=== PATIENT | female | born 1995 | race Caucasian/White ===

== ENCOUNTER 2021-10-13 08:11 | Inpatient (IN) | payer BC, MEDICAID, SELFPAY ==
[2021-10-13] VITALS (168 sets, daily range): BP systolic 75–160; BP diastolic 33–103; PULSE 35–171; TEMP 36.8; O2SAT 92–100; BMI 40.7
--- OUTSIDE RECORDS SUMMARY | 2021-10-13 11:54 | XMS_ITS | Encounter Summary ---
:1995 Author Care Team Providers Name Role Phone Avery Hein MD Primary Care Provider [phone] Reason for Visit None recorded. Assessment and Plan 1. Maternal obesity complicating , childbirth and the puerperium, antepartum ? non-stress test Discussion Note: None recorded.Patient educational handouts: No information available. Plan of Care Reminders Provider Appointments U/S OB BPP Ultr asound, TECH 10/25/2021 10:00AM ? Ob Routine Maggie Smith 10/25/2021 MD Urbano 10:45AM ? Nst Nst, , EQUI P 10/25/2021 9:15AM ? U/S OB BPP Ultras ound, TECH 11/01/2021 10:00AM ? Ob Routine Maggie Smiht 11/01/2021 MD [place] 10:30AM ? Nst Nst, , EQUI P 11/01/2021 9:15AM Lab None ? ? recorded. Referral None ? ? recorded. Procedures None ? ? recorded. Surgeries None ? ? recorded. Imaging Non-stress [place] Test 10/11/2021
--- OUTSIDE RECORDS SUMMARY | 2021-10-13 11:54 | XMS_ITS | Encounter Summary ---
:1995 Author Care Team Providers Name Role Phone Avery Hein MD Primary Care Provider [phone] Reason for Visit OB visit Assessment and Plan Assessment Note Patient is ___weeks . Discu ssed plan. 1. Routine care Discussion Note: None recorded.Patient educational handouts: No information available. Plan of Care Reminders Provider Appointments U/S OB BPP Ultr asound, TECH 10/25/2021 10:00AM ? Ob Routine Maggie Smith 10/25/2021 MD [place]ano 10:45AM ? Nst Nst, , EQUI P 10/25/2021 9:15AM ? U/S OB BPP Ultras ound, TECH 11/01/2021 10:00AM ? Ob Routine Maggie Smith 11/01/2021 MD [place]ano 10:30AM ? Nst Nst, , EQUI P 11/01/2021 9:15AM Lab None ? ? recorded. Referral None ? ? recorded. Procedures None ? ? recorded. Surgeries None ? ? recorded. Imaging None ? ? recorded. Medications
--- OUTSIDE RECORDS SUMMARY | 2021-10-13 11:54 | XMS_ITS | Encounter Summary ---
:1995 Author Care Team Providers Name Role Phone Avery Hein MD Primary Care Provider [phone] Reason for Visit OB visit OBB [id number] EDC 10/27/2021 lmp 01/20/2021 Assessment and Plan Assessment Note Patient is _37__weeks . Dis cussed plan. 1. Routine care Discussion Note: None [...]
--- OUTSIDE RECORDS SUMMARY | 2021-10-13 11:54 | XMS_ITS | Encounter Summary ---
:1995 Author Care Team Providers Name Role Phone Avery Hein MD Primary Care Provider [phone] Reason for Visit None recorded. Assessment and Plan 1. Maternal obesity complicating , childbirth and the puerperium, antepartum ? US, obstetric, biophysical profile + non-stress test Discussion Note: None recorded.Patient educational [...] , EQUI P 11/01/2021 9:15AM Lab None recorded. ? ? Referral None recorded. ? ? Procedures None recorded. ? ?
--- OUTSIDE RECORDS SUMMARY | 2021-10-13 11:54 | XMS_ITS ---
:1995 Author Care Team Providers Name Role Phone GREGG FARLEY MD Primary Care Provider [phone] Allergies Code Code System Name Reaction Severity Status Onset Sulfa Hives ? Active ? (Sulfonamid e Antibiotics ) ? Itching ? Active ? Medications Name Status Start Date Stop Date ? ? acetaminophen 300 mg-codeine 30 mg tablet Completed ? 10/11/2021 TAKE 1 TABLET BY MOUTH FOUR TIMES DAILY NEEDED FOR PAIN amoxicillin 500 mg capsule Completed ? 08/23 TAKE 1 CAPSULE BY MOUTH EVERY 8 HOURS FOR 7 DAYS amoxicillin 875 mg-potassium clavulanate 125 mg tablet Completed ? 08/23/2021 TAKE 1 TABLET BY MOUTH TWICE DAILY FOR 10 DAYS clotrimazole-betamethasone 1 %-0.05 % topical cream Active ? Not available APPLY TOPICALLY TO THE AFFECTED AND STEVEN ROUNDING AREAS TWICE DAILY IN THE MORNING AND IN THE EVENING FOR 2 WEEKS fluoxetine 20 mg capsule Completed ? 021 TAKE 1 CAPSULE BY MOUTH EVERY DAY fluticasone propionate 50 mcg/actuation nasal spray,suspension C ompleted ? 10/02/2021 USE 1 SPRAY IN EACH NOSTRIL TWICE DAILY FOR 14 DAYS Lidocaine Viscous 2 % mucosal solution Completed ? 06/12/2021 meloxicam 15 mg tablet Completed ? 1 TAKE 1 TABLET BY MOUTH EVERY DAY WITH A MEAL naproxen 500 mg tablet Completed ? 1 NuvaRing 0.12 mg-0.015 mg/24 hr vaginal Completed ? 06/12/2021
--- OUTSIDE RECORDS SUMMARY | 2021-10-13 11:54 | XMS_ITS | Encounter Summary ---
:1995 Author Care Team Providers Name Role Phone Avery Hein MD Primary Care Provider [phone] Reason for Visit OB visit Assessment and Plan 1. Genital herpes simplex 2. Large for gestation age fetus 3. Mixed anxiety and depressive disorder 4. Viral hepatitis C 5. Obesity Discussion Note: None recorded.Patient educational handouts: No [...]
--- OUTSIDE RECORDS SUMMARY | 2021-10-13 11:54 | XMS_ITS | Encounter Summary ---
:1995 Author Care Team Providers Name Role Phone Avery Hein MD Primary Care Provider [phone] Reason for Visit None recorded. Assessment and [...] ? recorded. Imaging Non-stress [place]le Test 10/04/2021
--- OUTSIDE RECORDS SUMMARY | 2021-10-13 11:54 | XMS_ITS | Encounter Summary ---
:1995 Author Care Team Providers Name Role Phone Avery Hein MD Primary Care Provider [phone] Reason for Visit OB visit [id number] Assessment and Plan Assessment Note Patient is ___weeks . Discu ssed plan. 1. Dermal mycosis ? clotrimazole-betamethasone 1 %-0.05 % topical cream Discussion Note: None recorded.Patient educational handouts: No information available. Plan of Care Reminders Provider Appointments U/S OB BPP Ultr asound, TECH 10/25/2021 10:00AM ? Ob Routine Maggie Smith 10/25/2021 MD [place] 10:45AM ? Nst Rios, YISSEL P 10/25/2021 9:15AM ? U/S OB BPP Ultras ound, TECH 11/01/2021 10:00AM ? Ob Routine Maggie Smith 11/01/2021 MD [place] 10:30AM ? Nst Rios, YISSEL P 11/01/2021 9:15AM Lab None ? ? recorded. Referral None ? ? recorded. Procedures None ? ? recorded. Surgeries None ? ? recorded.
--- OUTSIDE RECORDS SUMMARY | 2021-10-13 11:54 | XMS_ITS | Encounter Summary ---
:1995 Author Care Team Providers Name Role Phone Avery Hein MD Primary Care Provider [phone] Reason for Visit OB visit Assessment and [...]
--- OUTSIDE RECORDS SUMMARY | 2021-10-13 11:54 | XMS_ITS | Encounter Summary ---
:1995 Author Care Team Providers Name Role Phone Avery Hein MD Primary Care Provider [phone] Reason for Visit None recorded. Assessment and Plan 1. Reduced movement ? non-stress test Discussion Note: None recorded.Patient [...] Surgeries None ? ? recorded. Imaging Non-stress [place] Test 09/24/2021 Medications
--- OUTSIDE RECORDS SUMMARY | 2021-10-13 11:54 | XMS_ITS | Encounter Summary ---
:1995 Author Care Team Providers Name Role Phone Avery Hein MD Primary Care Provider [phone] Reason for Visit None recorded. Assessment and Plan 1. Maternal obesity complicating , childbirth and the puerperium, antepartum ? US, obstetric, follow-up Discussion Note: None recorded.Patient educational handouts: No [...] recorded. Surgeries None ? ? recorded. Imaging US, [facility] Obstetric, Follow-up 08/09/2021
--- OUTSIDE RECORDS SUMMARY | 2021-10-13 11:54 | XMS_ITS | Encounter Summary ---
:1995 Author Care Team Providers Name Role Phone Avery Hein MD Primary Care Provider [phone] Reason for Visit None recorded. Assessment and [...]
[2021-10-13 13:07] LABS: Basophils Percent Auto 0.2 % (0.2-1.2); Eosinophils Percent Auto 0.2 % (0-4.4); Hematocrit 40.1 % (37.0-47.0); Immature Granulocyte Absolute 0.17 K/mm3 (0.00-0.031); Immature Granulocyte Percent A 1.3 % (0-0.5); Lymphocytes Absolute Auto 2.53 K/mm3 (0.9-3.2); Lymphocytes Percent Auto 19.2 % (18.3-44.2); Mean Corpuscular HGB Conc 34.9 g/dl (32-36); Mean Corpuscular Volume 91.8 fl (80-100); Mean Platelet Volume 10.2 fl (7.4-10.4); Monocytes Absolute Auto 0.9 K/mm3 (0.1-0.6); Monocytes Percent Auto 6.9 % (2.6-8.5); Neutrophils Absolute Auto 9.5 K/mm3 (1.3-6.7); Neutrophils Percent Auto 72.2 % (45.5-73.1); Platelet Count Result 271 k/mm3 (150-375); Red Blood Count 4.37 M/mm3 (4.2-5.4); Red Cell Distribution Width 13.1 % (11.5-14.5); White Blood Count 13.2 K/mm3 (4.5-10.0)
[2021-10-13] MEDS: LACTATED RINGERS 1,000 ML 125 ML IV CONT ×2 (13:08→14:43)
[2021-10-13] MEDS: AMPICILLIN 2 GM/NS 100 ML 2 GM/100 ML BAG IVPB (13:09)
[2021-10-13 13:10] LABS: Creatinine Urine 63.8 mg/dL; Total Protein Urine Random 15 mg/dL; Ur Ttl Prot Creatinine Ratio 0.24 mg/mg (0-0.20)
[2021-10-13 13:23] LABS: Alanine Aminotransferase 92 U/L (4-35); Albumin Level 3.7 g/dL (3.5-5.1); Alkaline Phosphatase 154 U/L (38-126); Anion Gap 9 mmol/L (8-16); Aspartate Amino Transferase 78 U/L (14-36); Bilirubin,Total 0.5 mg/dL (0.2-1.3); Blood Urea Nitrogen 9 mg/dL (7-17); Calcium 9.9 mg/dL (8.4-10.2); Carbon Dioxide 20 mmol/L (22-30); Chloride 107 mmol/L (98-107); Estimated Glomerular Filt Rate > 60; Glucose 112 mg/dL (65-110); Potassium 3.7 mmol/L (3.4-5.0); Sodium 136 mmol/L (137-145); Uric Acid 5.3 mg/dL (2.5-7.5)
--- NOTE | 2021-10-13 13:33 | P.HPUP_ITS ---
History and Physical Update Update Date/Time: 10/13/21 13:33 26Year old 2 para 1 at 38 weeks gestation w ho presented in labor. She is hepatitis-C positive with a reasonably high viral count. She also has been exposed to herpes 2. Artificial rupture membranes was performed. Reassuring status. Her cervix is 4/80/- 1. Expected management. History and Physical has been reviewed, including an updated exam of the patient. There are NO changes in the patient's condition. Risks, benefits, and alternatives have been discussed and questions answered. Patient agrees to proceed with procedure.
[2021-10-13 13:41] LABS: Amphetamine Screen Urine Negative (Negative); Barbiturate Screen Urine Negative (Negative); Benzodiazepines Screen Urine Negative (Negative); Cannabinoid Screen Urine Positive (Negative); Cocaine Screen Urine Negative (Negative); Methadone Screen Urine Negative (Negative); Opiate Screen Urine Negative (Negative); Phencyclidine Screen Urine Negative (Negative)
--- NOTE | 2021-10-13 14:07 | LDADM ---
This patient, Mary Jo Neves, was admitted to Labor/Delivery/Recovery 106 on 10/13/21 at 08:11. Plans for labor, pain management and were discussed with patient. Patient/family oriented to hospital policies and general routines including ID bracelet, bed and alarms, visiting hours, pain management, procedures, bathroom and other care routines, personal items, smoking policy, room service/diet and guest tray routines, security routines, and visiting hours. Patient/Family are encouraged to report perceived risks to care and to ask questions if they do not understand what they are told or what they should do. See OBIX for further documentation.
[2021-10-13] MEDS: ONDANSETRON INJ 4 MG/2 ML VIAL IV PUSH (15:21)
[2021-10-13] MEDS: PHENYLEPHRINE 1,000 MCG/10 ML SYRINGE 100 MCG IV PUSH (15:26)
--- NOTE | 2021-10-13 15:27 | WPDANESEPP ---
Anes - Eval Pre Procedure Procedure: Labor Epidural Date/Time: 10/13/21 15:27 Surgeon: Urbano Preop Diagnosis: Labor Pain Pre Op Diagnosis: Contractions/ Bleeding Patient Data Age: 26 Gender: F Height: 1.7 m Weight: 118 kg Last Vital Signs Temp 36.8 C 10/13/21 09:28 Pulse 85 10/13/21 15:27 BP 97/52 L 10/13/21 15:27 Pulse Ox 98 10/13/21 15:26 Allergies Allergy/AdvReac Type Severity Reaction Status Date / Time Sulfa (Sulfonamide Allergy Hives Verified 10/07/21 14:53 Antibiotics) Home Medications Medication Instructions Recorded Confirmed Type vit-ferrous sulfat-FA 1 tablet PO DAILY 10/07/21 10/07/21 History [] sertraline 50 mg PO DAILY 10/07/21 10/07/21 History valacyclovir 500 mg PO DAILY 10/07/21 10/07/21 History Laboratory Tests 10/13/21 10/13/21 10/13/21 12:46 12:46 12:46 WBC 13.2 K/mm3 H K/mm3 (4.5-10.0) RBC 4.37 M/mm3 M/mm3 (4.2-5.4) Hgb 14.0 g/dL g/dL (12.0-15.0) Hct 40.1 % % (37.0-47.0) MCV 91.8 fl fl (80-100) MCH 32.0 pg pg (26-34) MCHC 34.9 g/dl g/dl (32-36) RDW 13.1 % % (11.5-14.5) Plt Count 271 k/mm3 k/mm3 (150-375) MPV 10.2 fl fl (7.4-10.4) Immature Gran % (Auto) 1.3 % H % (0-0.5) Neut % (Auto) 72.2 % % (45.5-73.1) Lymph % (Auto) 19.2 % % (18.3-44.2) [place] % (Auto) 6.9 % % (2.6-8.5) Eos % (Auto) 0.2 % % (0-4.4) Baso % (Auto) 0.2 % % (0.2-1.2) Lymph # (Auto) 2.53 K/mm3 K/mm3 (0.9-3.2) [place] # (Auto) 0.9 K/mm3 H K/mm3 (0.1-0.6) Eos # (Auto) 0.0 K/mm3 K/mm3 (0-0.3) Baso # (Auto) 0.0 K/mm3 K/mm3 (0.0-0.1) Abs Immat Gran (auto) 0.17 K/mm3 H K/mm3 (0.00-0.031) Absolute Neuts (auto) 9.5 K/mm3 H K/mm3 (1.3-6.7) Absolute Nucleated RBC 0.0 K/mm3 K/mm3 (0.0-0.012) Nucleated RBC % 0.0 % % (0.0-0.2) Sodium Potassium Chloride Carbon Dioxide Anion Gap BUN Creatinine Estim Creat Clear Calc Estimated GFR Glucose Uric Acid Calcium Total Bilirubin AST ALT Alkaline Phosphatase Total Protein Albumin U Random Total Protein Urine Creatinine Protein/Creat Ratio 2 Urine Opiates Screen Urine Methadone Screen Ur Barbiturates Screen Ur Phencyclidine Scrn Ur Amphetamine Screen U Benzodiazepines Scrn Urine Cocaine Screen U Cannabinoids Screen RPR Pending Blood Type B Positive Antibody Screen Negative 10/13/21 10/13/21 10/13/21 12:46 12:46 12:46 WBC RBC Hgb Hct MCV MCH MCHC RDW Plt Count MPV Immature Gran % (Auto) Neut % (Auto) Lymph % (Auto) [place] % (Auto) Eos % (Auto) Baso % (Auto) Lymph # (Auto) [place] # (Auto) Eos # (Auto) Baso # (Auto) Abs Immat Gran (auto) Absolute Neuts (auto) Absolute Nucleated RBC Nucleated RBC % Sodium 136 mmol/L L mmol/L (137-145) Potassium 3.7 mmol/L mmol/L (3.4-5.0) Chloride 107 mmol/L mmol/L (98-107) Carbon Dioxide 20 mmol/L L mmol/L (22-30) Anion Gap 9 mmol/L mmol/L (8-16) BUN 9 mg/dL mg/dL (7-17) Creatinine 0.50 mg/dL L mg/dL (0.7-1.0) Estim Creat Clear Calc Not Reportable Estimated GFR >
[2021-10-13] MEDS: ePHEDrine sulfate INJ 50 MG/ML AMPUL IV PUSH (16:08)
[2021-10-13] MEDS: OXYTOCIN 30 UNITS/NS 500 ML 30 UNITS/500 ML BAG IV CONT (17:19)
[2021-10-13] MEDS: AMPICILLIN 1 GM/NS 50 ML 1 GM/50 ML BAG IVPB (17:21)
--- NOTE | 2021-10-13 21:45 | PM.OBPRVD ---
OB - Delivery Note Procedure Delivery date: 10/13/21 Procedure: Intrapartal events: None Delivery augmentation: rupture of membranes and pitocin Delivery monitor: external FHT and external uterine Route of delivery: Quantitative Blood Loss (ml): 350 Anesthesia type: Epidural [place] Baby Date of : 10/13/21 Time of : 21:37 Weeks of gestation at delivery: 38 gender: Female Weight (pounds): 7 Weight (ounces): 14 score one minute: 9 score ten minutes: 9
[2021-10-13] MEDS: OXYTOCIN 30 UNITS/NS 500 ML 30 UNITS/500 ML BAG 125 UNITS IV CONT (22:21)
[2021-10-14] VITALS (7 sets, daily range): BP systolic 111–139; BP diastolic 60–81; PULSE 74–89; RESP 16–20; TEMP 36.3–37; O2SAT 98–100
[2021-10-14] MEDS: BENZOCAINE 20% AER SPR (*SP) 56 GM CAN 1 SPRAY TOPICAL ×2 (00:19→15:11)
[2021-10-14] MEDS: WITCH HAZEL 40 PADS 1 PAD TOPICAL ×2 (00:19→15:11)
--- NOTE | 2021-10-14 02:10 | OBPPTRN ---
10/14/2021 at 0031 Patient transferred to post room #287. Support person present. Oriented to unit, room, information board, rooming in, admission packet and security measures. Patient verbalizes understanding.
[2021-10-14 05:26] LABS: Hematocrit 37.8 % (37.0-47.0); Hemoglobin 13.4 g/dL (12.0-15.0)
[2021-10-14 06:11] LABS: Rapid Plasma Reagin Non-Reactive (NonReactive)
--- NOTE | 2021-10-14 07:39 | WPDANLDPN2 ---
Anes-Prog Note L&D Date/Time: 10/14/21 07:39 Comfortable throughout: labor and delivery Neuraxial method: epidural Epidural/Spinal procedure site: clean & non-tender Neuro status: Neuro function grossly intact. Cardiovascular status: normal Respiratory status: normal Airway patency: baseline Mental status: baseline Post-Op hydration status: normal Vital Signs: Last Vital Signs Temp 36.6 C 10/14/21 04:30 Pulse 84 10/14/21 04:30 Resp 18 10/14/21 04:30 BP 139/81 10/14/21 04:30 Pulse Ox 100 10/14/21 04:30 Pain score (VAS): 0 I/O: Intake & Output 10/13/21 10/13/21 10/14/21 15:59 23:59 07:59 Intake Total 1000 Output Total 108 Balance 1000 -108 Post-procedural complaints: none Patient feedback: Patient satisfied with anesthetic care.
--- NOTE | 2021-10-14 07:42 | PM.OBPNVD ---
OB - PN: Subj Subjective Date/time seen: 10/14/21 07:42 Patient comments: no complaints baby status: doing well and nursing well feeding status: exclusively breast feeding Narrative: E/A/V. no concerns. OB - PN: Obj Data Labs CBC & Chem 7: 10/14/21 04:41 10/13/21 12:46 Labs: Laboratory Results - last 24 hr 10/13/21 10/13/21 10/13/21 12:46 12:46 12:46 WBC 13.2 H RBC 4.37 Hgb 14.0 Hct 40.1 MCV 91.8 MCH 32.0 MCHC 34.9 RDW 13.1 Plt Count 271 MPV 10.2 Immature Gran % (Auto) 1.3 H Neut % (Auto) 72.2 Lymph % (Auto) 19.2 [place] % (Auto) 6.9 Eos % (Auto) 0.2 Baso % (Auto) 0.2 Lymph # (Auto) 2.53 [place] # (Auto) 0.9 H Eos # (Auto) 0.0 Baso # (Auto) 0.0 Abs Immat Gran (auto) 0.17 H Absolute Neuts (auto) 9.5 H Absolute Nucleated RBC 0.0 Nucleated RBC % 0.0 Sodium Potassium Chloride Carbon Dioxide Anion Gap BUN Creatinine Estim Creat Clear Calc Estimated GFR Glucose Uric Acid Calcium Total Bilirubin AST ALT Alkaline Phosphatase Total Protein Albumin U Random Total Protein Urine Creatinine Protein/Creat Ratio 2 Urine Opiates Screen Urine Methadone Screen Ur Barbiturates Screen Ur Phencyclidine Scrn Ur Amphetamine Screen U Benzodiazepines Scrn Urine Cocaine Screen U Cannabinoids Screen RPR Non-reactive Blood Type B Positive Antibody Screen Negative 10/13/21 10/13/21 10/13/21 12:46 12:46 12:46 WBC RBC Hgb Hct MCV MCH MCHC RDW Plt Count MPV Immature Gran % (Auto) Neut % (Auto) Lymph % (Auto) [place] % (Auto) Eos % (Auto) Baso % (Auto) Lymph # (Auto) [place] # (Auto) Eos # (Auto) Baso # (Auto) Abs Immat Gran (auto) Absolute Neuts (auto) Absolute Nucleated RBC Nucleated RBC % Sodium 136 L Potassium 3.7 Chloride 107 Carbon Dioxide 20 L Anion Gap 9 BUN 9 Creatinine 0.50 L Estim Creat Clear Calc Not Reportable Estimated GFR > 60 Glucose 112 H Uric Acid 5.3 Calcium 9.9 Total Bilirubin 0.5 AST 78 H ALT 92 H Alkaline Phosphatase 154 H Total Protein 6.0 L Albumin 3.7 U Random Total Protein 15 Urine Creatinine 63.8 Protein/Creat Ratio 2 0.24 H Urine Opiates Screen Negative Urine Methadone Screen Negative Ur Barbiturates Screen Negative Ur Phencyclidine Scrn Negative Ur Amphetamine Screen Negative U Benzodiazepines Scrn Negative Urine Cocaine Screen Negative U Cannabinoids Screen Positive A RPR Blood Type Antibody Screen 10/14/21 04:41 WBC RBC Hgb 13.4 Hct 37.8 MCV MCH MCHC RDW Plt Count MPV Immature Gran % (Auto) Neut % (Auto) Lymph % (Auto) [place] % (Auto) Eos % (Auto) Baso % (Auto) Lymph # (Auto) [place] # (Auto) Eos # (Auto) Baso # (Auto) Abs Immat Gran (auto) Absolute Neuts (auto) Absolute Nucleated RBC Nucleated RBC % Sodium Potassium Chloride Carbon Dioxide Anion Gap BUN Creatinine Estim Creat Clear Calc Estimated GFR Glucose Uric Acid Calcium Total Bilirubin AST ALT Alkaline Phosphatase Total Protein Albumin U Random Total Protein Urine Creatinine Protein/Creat Ratio 2 Urine Opiates Screen Urine Methadone Screen Ur Barbiturates Screen Ur Phencyclidine Scrn Ur Amphetamine Screen U Benzodiazepines Scrn Urine Cocaine Screen U Cannabinoids Screen RPR Blood Type Antibody Screen OB - PN A/P Plan day: 1 Plan: routine care Comments: DC home tomorrow. Time Spent With Patient Time: Total time spent is greater than 50% in coordination of care (as documented) at patient's floor/unit and/or counseling patient: Time with patient: less than 15 minutes Exam Narrative: NAD abdomen soft,
[2021-10-14] MEDS: IBUPROFEN 600 MG TABLET PO ×2 (09:02→15:11)
[2021-10-14] MEDS: SERTRALINE HCL 50 MG TABLET PO (09:03)
[2021-10-14] MEDS: DOCUSATE SODIUM 100 MG CAPSULE PO ×2 (09:03→15:11)
[2021-10-14] MEDS: valACYclovir HCL 500 MG TABLET PO (09:03)
[2021-10-14] MEDS: MULTIVIT/MIN/PREN/FOL AC/IRON TABLET 1 TAB PO (09:03)
--- NOTE | 2021-10-14 09:45 | PC.NURSE ---
Consult with pt., mother reports eagerly fed first feeding. Mother breastfed first child. Reviewed feeding cues, frequencies, duration of feedings, feeding elimination flow sheet, and signs of adequate intake. Requested mother to call out for RN/LC assist next feeding for observation. Instructed feeding should be initiated three hours from start of last feeding or if feeding cues are noted before. Mother voiced understanding of information shared.
--- NOTE | 2021-10-14 16:16 | PCCCNOTE ---
Care Coordination note. Pt. referred to Care Coordination for mom and baby having UDS positive for THC. Met with pt. at bedside. She reports plans to return home with her 4 year old son and FOB, [place]. She reports having good family support and all necessary baby care items. She is setup with [facility] in [place] and denies needs for community resource information. Pt. 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 She has remained in contact with support from rehab and reports staying sober other than THC since then. Pt. denies [facility] involvement currently. Spoke with Lexus Munoz at [facility] hotline Intake ID#[id number] and she reports will take pt.'s situation as information only.
--- NOTE | 2021-10-15 07:30 | PC.NURSE ---
PT introductions made and plan of care discussed per post , pain management, breast feeding, supplementation, daily care activities and pending discharge to home. PT sole recipient of such instructions. PT received instructions per one to one discussion, mom baby care guide and demonstrations this shfit. PT verbalized understanding of such instructions and no barriers to learning identified at this time.
[2021-10-15 07:50] VITALS: BP 125/81; PULSE 80; RESP 18; TEMP 36.3; O2SAT 100
--- NOTE | 2021-10-15 07:50 | PM.OBPNVD ---
OB - PN: Subj Subjective Date/time seen: 10/15/21 07:50 Patient comments: no complaints baby status: doing well OB - PN: Obj Data Labs CBC & Chem 7: 10/14/21 04:41 10/13/21 12:46 OB - PN A/P Plan day: 2 Plan: routine care and discharge home (F/U in 4 weeks) Comments: Plan to redraw labs prior to discharge d/t elevated LFT's. History of hep c. Time Spent With Patient Time: Total time spent is greater than 50% in coordination of care (as documented) at patient's floor/unit and/or counseling patient: Time with patient: less than 15 minutes Review of Systems Review of Systems: All systems reviewed & are unremarkable except as noted in HPI and below Exam Narrative: Fundus firm and vaginal flow controlled. No lower ext redness, warmth, or edema. Negative homans. Const: General: comfortable Chest: Breast/axilla inspection: normal inspection of the breasts Resp: Effort & Inspection: normal respiratory effort Cardio: Rate: regular rate GI: GI Palp: Yes Soft to palpation Psych: Appearance: grossly normal Affect: normal affect Attitude: cooperative Thought content: Yes Normal thought content present Judgement: Good judgement present (Psych)
[2021-10-15 09:20] VITALS: PULSE 80; RESP 18; O2SAT 100
[2021-10-15] MEDS: DOCUSATE SODIUM 100 MG CAPSULE PO ×2 (09:25→16:48)
[2021-10-15] MEDS: MULTIVIT/MIN/PREN/FOL AC/IRON TABLET 1 TAB PO (09:25)
[2021-10-15] MEDS: SERTRALINE HCL 50 MG TABLET PO (09:25)
[2021-10-15] MEDS: ACETAMINOPHEN 325 MG TABLET 650 MG PO ×2 (09:26→16:45)
[2021-10-15] MEDS: IBUPROFEN 600 MG TABLET PO ×2 (09:26→16:48)
[2021-10-15 10:01] LABS: Hematocrit 36.6 % (37.0-47.0); Hemoglobin 12.9 g/dL (12.0-15.0); Mean Corpuscular HGB Conc 35.2 g/dl (32-36); Mean Corpuscular Hemoglobin 32.7 pg (26-34); Mean Corpuscular Volume 92.9 fl (80-100); Mean Platelet Volume 9.9 fl (7.4-10.4); Platelet Count Result 250 k/mm3 (150-375); Red Blood Count 3.94 M/mm3 (4.2-5.4); Red Cell Distribution Width 13.1 % (11.5-14.5); White Blood Count 10.6 K/mm3 (4.5-10.0)
[2021-10-15 10:28] LABS: Alanine Aminotransferase 74 U/L (4-35); Albumin Level 3.4 g/dL (3.5-5.1); Alkaline Phosphatase 115 U/L (38-126); Anion Gap 8 mmol/L (8-16); Aspartate Amino Transferase 72 U/L (14-36); Bilirubin,Total 0.3 mg/dL (0.2-1.3); Blood Urea Nitrogen 10 mg/dL (7-17); Calcium 9.1 mg/dL (8.4-10.2); Carbon Dioxide 22 mmol/L (22-30); Chloride 104 mmol/L (98-107); Estimated CRCL calculation 159 ml/min; Estimated Glomerular Filt Rate > 60; Glucose 140 mg/dL (65-110); Potassium 3.6 mmol/L (3.4-5.0); Sodium 134 mmol/L (137-145); Uric Acid 5.9 mg/dL (2.5-7.5)
--- NOTE | 2021-10-15 19:30 | PC.NURSE ---
PT received discharge instructions per protocol and verbalized understanding of such care.
--- NOTE | 2021-10-15 19:58 | PC.NURSE ---
PT discharged to no care bed status due to under phototherapy
[2021-10-18 10:47] VITALS: BP 129/75; PULSE 71; RESP 16; TEMP 37; O2SAT 98
--- NOTE | 2021-11-10 09:20 | PM.OBDSVD ---
DS: Admitting Diagnosis Discharge Date 10/15/21 Admitting Diagnosis Labor OB - DS: Summary OB Procedures : None OB Procedures Intrapartum: Spontaneous Vag Delivery OB Procedures: : None Time Spent with Patient Time attestation: Total time spent providing and/or coordinating discharge services: DS: Data Data Completed and Pending Completed studies during hospitalization: Pending at discharge 10/13/21 21:40 Surgical [PTH] Routine Discharge Plan Discharge Attending physician on discharge: Ayah Clement Consulting providers: Mignon Block ; Petty Nichols Discharging Clinician: Petty Nichols Patient Disposition: Home, Self-Care Activity: pelvic rest Diet: as tolerated Discharge Instructions: Education: Mom and Baby Guide Given to: Mother Follow-Up: Call your delivering provider's office for an appointment to be seen in: 4 Weeks Mom and baby should come to the [facility] for the follow-up appointment. Appointment Date/Time:will wait till infant discharge What to expect at your follow-up visit: Blood Pressure Check Call [phone] if you are unable to keep your appointment time. BREAST CARE: * Wear a snug supportive bra. * For engorgement discomfort: Breast Feeding: * Apply warm moist washcloths * Express milk as needed to relieve engorgement * Wear loose clothing Bottle Feeding: * May apply ice packs * For sore nipples: * Identify correct latch-on * Apply warm moist washcloths before and after nursing * Air dry nipples after nursing * May apply Lansinoh cream to nipples PERINEAL CARE: * Until bleeding stops, use your molly bottle after urinating * Change your pad frequently throughout the day * You may take sitz baths several times a day (fill your bathtub with warm water and soak for 20 minutes.) Do NOT bathe in the water * No tub baths until seen by your physician - You may shower ACTIVITY: * Rest as much as possible. * Do not exercise or lift anything heavier than your baby (such as laundry or other children.) * Avoid stairs or driving as much as possible. * Do not put anything into the vagina. No douching, tampons, or sexual activity until seen by physician. NOTIFY PHYSICIAN IF YOU HAVE ANY QUESTIONS OR IF ANY OF THE FOLLOWING SYMPTOMS OCCUR: * If your perineum becomes red, swollen, or more painful than what you have experienced in the hospital. * If your vaginal bleeding becomes foul smelling. * If your vaginal bleeding becomes more heavy than a period or if your bleeding changes from pink to bright red. However, you may pass an occasional walnut-sized clot once or twice for the first week . * If you experience a sharp, shooting pain in you calves. * If you discover a hard, reddened area on your breast or if you experience flu-like symptoms. * If you have a fever of 100.4 or greater. DIET: * Eat regular, well-balanced meals. * Drink plenty of fluids daily. If , drink to thirst. Patient Instructions: Antibiotic Form Stand Alone Forms: General Discharge Information Follow-up/Referrals: Ayah Clement MD [Physician] - Discharge Medications: Continued vit-ferrous sulfat-FA 27 mg iron- 0.8 mg Tablet 1 tablet PO DAILY RF: 0 valacyclovir 500 mg Tablet 500 mg PO DAILY RF: 0 sertraline 50 mg Tablet 50 mg PO DAILY RF: 0 Date of admission: 10/13/21 08:11 Primary Care Provider: Angel Luis,Avery Admitting Provider: Ayah Clement Attending physician on admission: Ayah Clement Condition: Stable
== END 2021-10-15 19:58 | disposition home or self-care (01) | DRG 807 ==
LOC: ANHLDR 11:52 → ANHOB2 10-14 00:52
PROVIDERS: Advanced Practice Midwife; Admitting Provider Obstetrics & Gynecology; PCP Internal Medicine; Visit Provider Obstetrics & Gynecology
DX: O98.42 Viral hepatitis complicating childbirth (principal); Z37.0 Single live birth; B19.20 Unspecified viral hepatitis C without hepatic coma; O99.824 Streptococcus B carrier state complicating childbirth; O77.0 Labor and delivery complicated by meconium in amniotic fluid; O76 Abnormality in fetal heart rate and rhythm complicating labor and delivery; Z3A.38 38 weeks gestation of pregnancy; Z23 Encounter for immunization
CPT/HCPCS: 36415; 80053; 80307; 82570; 84156; 84550; 85014; 85018; 85025; 85027; 86592; 86850; 86900; 86901; 88307; 90471; 90653; A9270; G0008; J0290; J2370; J2405; J2590; J2795; J7120

== ENCOUNTER 2025-04-11 10:00 | Emergency (ER) | payer BC, MEDICAID, SELFPAY ==
[2025-04-11 10:08] VITALS: BP 132/89; PULSE 80; RESP 20; TEMP 36.7; O2SAT 98
--- OUTSIDE RECORDS SUMMARY | 2025-04-11 10:16 | XMS_ITS | Clinical Summary ---
Author Organization [facility] Address [address] [place] [address] Care Team Providers Care Eyeglass Maker Name Role Phone Malcolm Orozco MD Primary Care Provider [phone] Source Comments [facility],non-owned Affiliates and Associated Physician Practices is amultiple site organization consisting of ambulatory clinics and hospital sitesin [place], [place], [place] and [place]. This disclosure is being madepursuant to the Care Everywhere program and may not contain all information available regarding this patient. Last updated 18.[facility] Allergies Active Allergy Reactions Criticality Noted Date Comments Sulfa Drugs Rash Medium 08/09/2017 Medications * Be aware that medications may not be up to date on this document. Alwaysverify current medications with the patient. ibuprofen (MOTRIN) 600 MG tablet Take 600 mg by mouth every 6 hours as needed 7 Active acetaminophen (TYLENOL) 325 MG tablet Take 650 mg by mouth every 6 hours as needed 7 Active Vit-Fe Fumarate-FA ( VITAMIN) 28-0.8 MG tabletIndicatio ns: Take 1 tablet by mouth once daily Reasons: Active sertraline (ZOLOFT) 50 MG tablet Take 50 mg by mouth once daily Active valACYclovir (VALTREX) 500 MG tablet Take 1,000 mg by mouth once Active Active Problems Problem Noted Date Diagnosed Date Encounter for follow-up ultrasound of kenya luis 09/23/2021 Maternal obesity affecting , antepartum 08/21/2021 Assessment & Plan (08/21/2021 3:39 PM CDT): 1. Would benefit from and weight loss Chronic hepatitis C affecting , antepar halley 08/19/2021 Overview (08/20/2021): 07/12/21: Hepatitis C antibody Positive 2.93 (cutoff is <1.00) 08/02/21 Hepatitis C Quant (IU/ml): 173,000 ; HCV RNA, Quant, RT-PCR: 5.24 Assessment & Plan (08/21/2021 3:47 PM CDT): Hepatitis C in Obstetric complications of with chronic hepatitis-C may include: congenital anomalies, , low weight, premature rupture of membranes, gestational diabetes, cholestasis of . Treatment of hepatitis C in persons is not currently standard of care. transmission of hepatitis C from mother to child is the 3rd most common route of transmission. In patients with undetectable viral RNA in the serum and who do not also have HIV infection, the risk of transmission of hepatitis C may be less than 5 percent. By contrast, for patients with positive hepatitis C serum PCR or if the patient has an HIV co-infection, or both, the transmission rate may approach 25 percent. The mother to child transmission rate for hepatitis-C virus alone is generally between 3-10%. A recent study suggested increased risk of mother to child transmission with a viral load greater than 600,000 IU/mL. More recent meta analyses did not demonstrate a protective affect of delivery in mother to child transmission. Should Ghassan deliver vaginally, I would recommend avoiding the use of scalp electrodes or intrauterine pressure catheters during labor as well as avoiding prolonged rupture of membranes. with chronic hepatitis C is acceptable and is supported by the [employer]. Approximately 5-7 % of exposed infants have detectable hepatitis C RNA levels in the first several months of life. The rate of spontaneous resolution in children up to the age of 3 years is 25-50 percent. One report summarizes the natural history of hepatitis-C infected children, with chronic infection, to be largely benign. Some studies investigating children who were infected with hepatitis C virus since , have demonstrated that only about 5 percent of those children have detectable fibrosis by the age of 20. I would recommend that this fetus be screened for Hepatitis C infection in the Pediatric period. Once is completed, Ghassan should be treated for chronic hepatitis C infection. Recommendations 1. Requested liver function panel--requisition given 2. Avoid scalp electrode, intrauterine pressure catheters and prolonged rupture of membranes in labor 1. However expectant management of PPROM is not a contraindication to vaginal delivery 3. Notify Senior Qa Tester of maternal HCV 1. Child should be screened for HCV 4. No contraindication to maternal 5. Maternal treatment with PCP after childbirth and Genital herpes Assessment & Plan (08/21/2021 3:39 PM CDT): 1. HSV suppression starting no later than 36 wks Anxiety and depression Overview (08/21/2021): on Zoloft Assessment & Plan (08/21/2021 3:48 PM CDT): Sertraline [Zoloft]: U.S. FDA category not assigned. Animal studies have failed to show evidence of teratogenicity; however, there has been evidence of delayed ossification. There may be potential for drug discontinuation syndrome in the . Some experts suggest that newborns be observed for the first 48 hours of life after , if there has been exposure late in the 3rd trimester. SSRIs, in general, may increase the risk of persistent pulmonary hypertension of the . This drug is considered one of the preferred antidepressants during breast- feeding. Recommendations 1. Reassess mood at and visits 2. Notify Senior Qa Tester of Zoloft use 3. [place] would benefit from increased supervision in the first 48 hrs of life Family History Medical History Relation Name Comments Cancer - Rectal Maternal Grandmother Schizophrenia Maternal Grandmother Anxiety Disorder Mother Diabetes - Type 2 Mother Hypertension Mother Obesity Mother Thyroid Disease Mother thyroid canc er Relation Name Status Comments Brother 1 Alive Brother 2 Alive Father Alive Maternal Grandmother Mother Alive Sister Alive Social History Tobacco Use Types Packs/Day Years Used Date Smoking Tobacco: Former Cigarettes 0.5 3 1 - 08/23/2018 Smokeless Tobacco: Never Alcohol Use Standard Drinks/Week Comments Not Currently 0 (1 standard drink = 0.6 oz pur e alcohol) Comments No Sex and Gender Information Value Date Recorded Sex Assigned at Not on file Legal Sex Female 8:30 AM CDT Gender Identity Not on file Sexual Orientation Not on file 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 Not on file Not on file Not on cande e Last Filed Vital Signs Vital Sign Reading Time Taken Comments Blood Pressure 123/73 08/21/2021 2:33 PM CDT Pulse 89 08/21/2021 2:33 PM CDT Temperature - - Respiratory Rate - - Oxygen Saturation - - Inhaled Oxygen Concentration - - Weight 115.2 kg (254 lb) 08/21/2021 2:33 PM CDT Height 170.2 cm (5' 7 ) 08/21/2021 3:17 PM CDT Body Mass Index 39.78 08/21/2021 2:33 PM CDT Plan of Treatment Health Maintenance Due Date Last Done Comments DTAP/TDAP/TD VACCINES (1 - Tdap) 2013 HEPATITIS B VACCINE (1 of 3 - 19+ 3-dose series) 2013 COVID-19 VACCINE (3 - season) 2024 01/11/2021, 12/13/2020 DEPRESSION SCREENING 11/23/2024 INFLUENZA VACCINE (Season Ended) 2025 ZOSTER VACCINE (1 of 2) 2044 HIV SCREENING Completed 08/09/2021 HEPATITIS C SCREENING Completed 09/20/2021 , 08/21/2021, 08/21/2021, Additional history exists HIB VACCINE Aged Out No longer eligi ble based on patient's age to complete this topic HPV VACCINE Aged Out No longer eligi ble based on patient's age to complete this topic MENINGOCOCCAL (Group B) VACCINE SHARED DECISION-MAKING Aged Out No longer eligible based on patient's age to complete this topic MENINGOCOCCAL GROUPS A/C/Y/W VACCINE Aged Out No longer eligible based on patient's age to complete this topic PNEUMOCOCCAL VACCINE Aged Out No long er eligible based on patient's age to complete this topic Insurance [place] MEDICAID [facility] MEDICAID - [place] [facility] Care Teams Eyeglass Maker Relationship Specialty Start Date End Date Malcolm Orozco MD [address] [place] [address] PCP - General 10/14/19
--- OUTSIDE RECORDS SUMMARY | 2025-04-11 10:17 | XMS_ITS | Referral Summary ---
Author Organization [facility] Address [address] [place] [address] Care Team Providers Care Contracts Analyst Name Role Phone Silvio Clement MD Unavailable [phone] Unknown, Notinfile Primary Care Provider Unavail able Allergies Active Allergy Reactions Criticality Noted Date Comments Vancomycin Redness,Rash Medium 03/13/2023 Medications valACYclovir (VALTREX) 500 mg tablet Take 1 tablet (500 mg total) by mouth daily 11/09/20 22 Active sofosbuvir-velpata svir (EPCLUSA) 400-100 mg tablet per tablet Take 1 tablet by mouth 07/21/20 22 Active levonorgestreL (Mirena) IUD Mirena 20 mcg/24 hours (7 yrs) 52 mg intrauterine device Take by intrauterine route. Active cholecalciferol (VITAMIN D-3) 5,000 unit tabletIndications: Vitamin D Deficiency Take 1 tablet (5,000 Units total) by mouth daily 90 tablet 3 03/19/20 23 Active Additional Information Patient not taking.Reported on 03/16/2024 adapalene-benzoyl peroxide 0.1-2.5 % gel with pumpIndications:Ac ne Vulgaris Apply 1 application (deactivated) topically daily Apply to affected areas of skin once daily. 45 g 1 04/10/20 23 Active Additional Information Patient not taking.Reported on 03/16/2024 ondansetron ODT (ZOFRAN-ODT) 4 mg disintegrating tabletIndications: Nausea DISSOLVE 1 TABLET(4 MG) ON THE TONGUE EVERY 8 HOURS NEEDED FOR NAUSEA OR VOMITING 21 tablet 04/27/20 23 Active Additional Information Patient not taking.Reported on 03/16/2024 cyclobenzaprine (FLEXERIL) 10 mg tabletIndications: Muscle Spasm Take 1 tablet (10 mg total) by mouth nightly as needed for muscle spasms (headaches) 90 tablet 07/08/20 Active Additional Information Patient not taking.Reported on 03/16/2024 sertraline (ZOLOFT) 100 mg tablet Take 1 tablet (100 mg total) by mouth daily 90 tablet 1 11/10/20 Active Active Problems Problem Noted Date Diagnosed Date Acne vulgaris 04/20/2023 Assessment & Plan (04/20/2023 5:31 AM CDT): - chronic condition, recurrent - in teenage years did Accutane with good improvement - still having some breakouts - start Topical retinoid with Benzoyl peroxide, order placed for Adapalebe- benzoyl peroxide 0.1-0.25% gel, script sent in Vitamin D deficiency 03/19/2023 Assessment & Plan (04/20/2023 5:32 AM CDT): - noted to have vitamin D deficiency on 03/15 - most recent Vitamin D level is as shown below - patient already started on Vitamin D3 5000 iu daily - continue current management Lab Results Component Value Date 25HYDROVITD 25 (L) 03/18/2023 IUD (intrauterine device) in place 03/13/2023 Assessment & Plan (03/13/2023 12:08 PM CDT): - placed around 10/2021 - follows with [facility] Tension type headache 03/13/2023 Assessment & Plan (07/10/2023 1:19 PM CDT): - chronic, improved/stable - has been on flexeril before nightly in past which did help before - resume medication --> script sent for use nightly Flexeril 10 mg nightly PRN which has helped her - discussed to exercise and stretch regularly - continue current therapy Assessment & Plan (03/13/2023 12:12 PM CDT): - chronic, not at goal - has been on flexeril before nightly in past which did help before - resume medication --> script sent for use nightly Flexeril 10 mg nightly PRN - discussed to exercise and stretch regularly Recurrent major depressive disorder, in partial remission 03/13/2023 Assessment & Plan (07/10/2023 1:18 PM CDT): - chronic condition - depression - well controlled, diagnosed around age 11 - anxiety - well controlled - reports past diagnose of ADHD (used to be on Vyvance) - reports long history of depression, depression - past diagnosed at age 14 for suicide attempts - reports history of anxiety/panic attacks - in past has been on Prozac, citalopram, lexparo, wellbutrin - currently on Sertraline 100 mg daily - doing therapy as well - continue current medication Assessment & Plan (03/13/2023 12:49 PM CDT): - chronic condition - depression - well controlled, diagnosed around age 11 - anxiety - not at goal - reports past diagnose of ADHD (used to be on Vyvance) - reports long history of depression, depression - reports history of anxiety/panic attacks - currently on Sertraline 100 mg daily - in past has been on Prozac, citalopram, lexparo, wellbutrin - past diagnosed at age 14 for suicide attempts - doing therapy biweekly - continue current medication CHICO (generalized anxiety disorder) 03/13/2023 Assessment & Plan (07/10/2023 1:18 PM CDT): - chronic condition - depression - well controlled, diagnosed around age 11 - anxiety - well controlled - reports past diagnose of ADHD (used to be on Vyvance) - reports long history of depression, depression - past diagnosed at age 14 for suicide attempts - reports history of anxiety/panic attacks - in past has been on Prozac, citalopram, lexparo, wellbutrin - currently on Sertraline 100 mg daily - doing therapy as well - continue current medication Assessment & Plan (03/13/2023 12:49 PM CDT): - chronic condition - depression - well controlled, diagnosed around age 11 - anxiety - not at goal - reports past diagnose of ADHD (used to be on Vyvance) - reports long history of depression, depression - reports history of anxiety/panic attacks - currently on Sertraline 100 mg daily - in past has been on Prozac, citalopram, lexparo, wellbutrin - past diagnosed at age 14 for suicide attempts - doing therapy biweekly - continue current medication Class 1 obesity due to exces s calories without serious comorbidity with body mass index (BMI) of 33.0 to 33.9 in adult 03/13/2023 Assessment & Plan (07/10/2023 1:18 PM CDT): Wt Readings from Last 3 Encounters: 07/08/23 95.7 kg (211 lb) 04/10/23 98.9 kg (218 lb) 03/13/23 99.6 kg (219 lb 9.6 oz) Body mass index is 33.05 kg/m . - chronic condition, not at goal but improved, some weight loss noted - BMI Follow-up includes: nutrition counseling, exercise counseling and education Assessment & Plan (03/13/2023 12:44 PM CDT): Wt Readings from Last 3 Encounters: 03/13/23 99.6 kg (219 lb 9.6 oz) 04/08/22 102.1 kg (225 lb) 10/12/19 102.1 kg (225 lb) Body mass index is 34.39 kg/m . - chronic condition, not at goal but improved - BMI Follow-up includes: nutrition counseling, exercise counseling and education - obtain lab work, order placed History of substance abuse 03/13/2023 Assessment & Plan (03/13/2023 12:34 PM CDT): - hx of amphetamine - IV - hx of IV drug use History of herpes genitalis 03/13/2023 Assessment & Plan (03/13/2023 12:35 PM CDT): - chronic, stable - on chronic suppressive therapy - valtrex 500 mg daily - continue current therapy S/P tonsillectomy and adenoidectomy 03/13/2023 Methamphetamine abuse 01/13/2023 Chronic hepatitis C without hepatic coma 022 Assessment & Plan (07/10/2023 1:17 PM CDT): - followed with GI provider at [facility] - has completed treatment with Epclusa - due for recheck of Hep C RNA - order placed Assessment & Plan (03/13/2023 12:44 PM CDT): - followed with GI provider at [facility] - currently on treatment with Epclusa - continue current management - obtain lab work and Hep B immunity testing ordered as well History of ADHD 10/15/2016 Intravenous drug user 10/15/2016 Resolved Problems Problem Noted Date Diagnosed Date Resolved Date Normal labor 08/28/2017 03/13/2023 Vaginal discharge during pre gnancy in third trimester 08/09/2017 03/13/2023 Cellulitis 10/15/2016 03/13/2023 Cellulitis of right arm 10/15/201602/22 Leukocytosis 10/15/2016 03/13/2023 Sepsis 10/15/2016 03/13/2023 Immunizations Immunization Administration Dates Next Due Hep B Vaccine 06/26/2022,05/20/2022 Influenza, Quadrivalent, Spl it, Intramuscular 10/02/2020 Influenza, Quadrivalent, Spl it, Preservative Free, Intramuscular 10/15/2021,10/16/2016 Influenza, Unspecified 01/21/2023(Deferred: Karla ent Refused) MMR 08/30/2017 PPD TEST 03/16/2024 Tdap 07/10/2018,05/02/2018 Varicella 06/10/2019,05/02/2019 Social History Tobacco Use Types Packs/Day Years Used Date Smoking Tobacco: Former Cigarettes 0.3 6 Smokeless Tobacco: Never Tobacco Cessation:Counseling Given: Not Answered Alcohol Use Standard Drinks/Week Comments Yes 0 (1 standard drink = 0.6 oz pur e alcohol) socially PHQ-2 Answer Date Recorded PHQ-2 Total Score (If total score is 3 or more points, staff should administer the PHQ-9) 0 07/08/2023 Personal Safety Answer Date Recorded Getting School Help Needed Not on file 11/03 Comments No Sex and Gender Information Value Date Recorded Sex Assigned at Not on file Legal Sex Female 7:03 AM ARTIFICIAL FLY TIER Gender Identity Not on file Sexual Orientation Not on file Last Filed Vital Signs Vital Sign Reading Time Taken Comments Blood Pressure 110/70 03/16/2024 12:12 PM CDT Pulse 86 03/16/2024 12:12 PM CDT Temperature 36.4 C (97.5 F) 03/16/2024 12:12 PM CDT Respiratory Rate 18 03/16/2024 12:12 PM CDT Oxygen Saturation 97% 03/16/2024 12:12 PM CDT Inhaled Oxygen Concentration - - Weight 101.2 kg (223 lb) 03/16/2024 12:12 PM CDT Height 170.2 cm (5' 7 ) 03/16/2024 12:12 PM CDT Body Mass Index 34.93 03/16/2024 12:12 PM CDT Plan of Treatment Not on file Procedures Procedure Name Priority Date/Time Associated Diagnosis Comments HEPATITIS C ANTIBODY Routine 07/18/2023 11:32 AM CDT from Last 3 Months or Most Recently Relevant to Health Maintenance Results * (ABNORMAL) Hepatitis C antibody (07/18/2023 11:32 AM CDT) Hep C Ab REACTIVE( A) NON-REACT [facility] Comment: Based on this result, the sample will be tested for HCV RNA by a Nucleic Acid Amplification Test (NAAT) to determine if the patient has a current active infection. 07/18/2023 11:3 2 AM CDT 07/18/2023 11:34 AM CDT Narrative [facility] - 07/21/2023 11:25 PM CDT FASTING:NO FASTING: NO us Christoph Ahuja MD LAB MICROBIOLOGY - GENE RAL ORDERABLES Final Result [facility] [id number] [id number] from Last 3 Months or Most Recently Relevant to Health Maintenance Insurance [place] [facility] [place] Care Teams Contracts Analyst Relationship Specialty Start Date End Date Unknown, Notinfile PCP - General 03/16/24 Silvio Clement MD [address] [place] [place], [place] [id number] Referring Physician Obstetrics and Gynecology 03/13/23
--- OUTSIDE RECORDS SUMMARY | 2025-04-11 10:17 | XMS_ITS | Data Portability ---
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 Patient will come back in a year unless there are new symptoms. [email or web address] Not available 04/08/2024 15:11:52 Plan of Treatment Reminders Order Date Submit Date Provider Last Modified By Organization Details Last Modified Time Details Appointments None recorded. Lab CBC w/ auto diff 2023 024 [facility] (Lab), [address], [place], [address], 4 16:13:04 CMP, serum or plasma 2023 024 [facility] (Lab), [address] [place], [address], 4 16:13:06 lipid panel, blood 2023 024 [facility] (Lab), [address] [place], [address], 4 16:13:05 TSH, serum or plasma 2023 024 [facility] (Lab), [address], [place], [address], 4 16:13:07 vitamin D, 25-hydroxy, total, serum 2023 024 [facility] (Lab), [address] [facility], [place], [address], 4 16:13:07 pap, IG + HR HPV - HPV regardless but if HPV is positive need subtyping 16,18/45 2023 024 [facility] (Lab), [address] [facility], [place], [address], 4 15:30:47 hepatitis C RNA, quant, PCR, serum 2023 024 [facility] (Lab), [address] [facility], [place], [address], 4 16:13:08 Referral None recorded. Procedures None recorded. Surgeries None recorded. Imaging US, pelvis 2023 [email or web address], [place], [address], 4 18:12:54 US, transvagina l 2023 [email or web address] [address], [address], [place], [address], 4 18:18:29 Medication Orders None recorded. Patient TargetsNo targets recorded. Patient InstructionsNo instructions recorded. Reason for Referral None Reported. Results Created Date Observation Date Name Description Value Unit Range Abnormal Flag Note LastModifiedBy Organization Detail LastModifiedTime 01/14/20 22 01/14/2022 BHCG, QUANT ITATI VE B-HCG <0.2 mIU/m L This assay was perfo rmed using [employer] ratio n reage nts and test kits. Value s obtai bob with other assay metho ds or kits canno t be used inter ortiz eably . Refer ence Range s: Non-p regna nt, preme nopau tamara women : 0.0-5 .3 mIU/m L Postm enopa usal women : 0.0-7 .0 mIU/m L Vonnie l Pregn matt: Gesta heike l Age bHCG Conc. - mIU/m L 3 Weeks 5.8 - 71.7 4 Weeks 9.5 - 750 5 Weeks 217-7 138 6 Weeks 158 - 31,79 5 7 Weeks 3,697 - 162,5 63 8 Weeks 32,06 5 - 149,5 71 9 Weeks 63,80 3 - 151,4 10 10 Weeks 46,50 9 - 186,9 77 12 Weeks 27,83 2 - 210,6 12 14 Weeks 13,95 0 - 62,53 0 15 Weeks 12,03 9 - 70,97 1 16 Weeks 9,040 - 56,45 1 17 Weeks 8,175 - 55,86 8 18 Weeks 8,099 - 58,17 6 Not Available [facility] (Lab) [address], [place], [address], 01/15/2022 03:44:26 01/15/20 22 01/15/2022 CT/GC AND TRICH OMONA S VAGIN GURJIT (RRNA ), URINE chlamydia trachomatis, PCR Negati ve negati ve Not Available [facility] (Lab) [address] , [place], [address], 01/16/2022 13:43:25 01/15/20 22 01/15/2022 CT/GC AND TRICH OMONA S VAGIN GURJIT (RRNA ), URINE neisseria gonorrhoeae, PCR Negati ve negati ve Not Available [facility] (Lab) [address], [place], [address], 01/16/2022 13:43:25 01/15/20 22 01/15/2022 CT/GC AND TRICH OMONA S VAGIN GURJIT (RRNA ), URINE trichomonas vaginalis ribosomal RNA (rrna) Negati ve negati ve Not Available [facility] (Lab) [address], [place], [address], 01/16/2022 13:43:25 04/08/20 24 04/08/2024 CBC W/DIF F WBC 8.9 10'3/ uL 3.5-10 .5 Not Available [facility] (Lab) [address] , [place], [address], 04/12/2024 16:13:04 04/08/20 24 04/08/2024 CBC W/DIF F RBC 4.59 10'6/ uL (based on docume nted legal sex) 3.80-5 .20 Not Available [facility] (Lab) [address] [facility], [place], [address], 04/12/2024 16:13:04 04/08/20 24 04/08/2024 CBC W/DIF F HGB 13.9 g/dL (based on docume nted legal sex) 11.6-1 5.4 Not Available [facility] (Lab) [address], [place], [address], 04/12/2024 16:13:04 04/08/20 24 04/08/2024 CBC W/DIF F HCT 42.6 % (based on docume nted legal sex) 34.0-4 5.0 Not Available [facility] (Lab) [address], [place], [address], 04/12/2024 16:13:04 04/08/20 24 04/08/2024 CBC W/DIF F MCV 92.8 fL 80.0-9 9.0 Not Available [facility] (Lab) [address], [place], [address], 04/12/2024 16:13:04 04/08/20 24 04/08/2024 CBC W/DIF F MCH 30.3 pg 27.0-3 4.0 Not Available [facility] (Lab) [address] [facility], [place], [address], 04/12/2024 16:13:04 04/08/20 24 04/08/2024 CBC W/DIF F MCHC 32.6 g/dL 32.0-3 5.5 Not Available [facility] (Lab) [address], [place], [address], 04/12/2024 16:13:04 04/08/20 24 04/08/2024 CBC W/DIF F RDW 12.2 % 11.0-1 5.0 Not Available [facility] (Lab) [address] [facility], [place], [address], 04/12/2024 16:13:04 04/08/20 24 04/08/2024 CBC W/DIF F plt 344 10'3/ uL 150-40 0 Not Available [facility] (Lab) [address] [facility], [place], [address], 04/12/2024 16:13:04 04/08/20 24 04/08/2024 CBC W/DIF F MPV 10.5 fL 8.8-12 .1 Not Available [facility] (Lab) [address], [place], [address], 04/12/2024 16:13:04 04/08/20 24 04/08/2024 CBC W/DIF F NRBC's 0.0 % 0.0 Not Available [facility] (Lab) [address] [facility], [place], [address], 04/12/2024 16:13:04 04/08/20 24 04/08/2024 CBC W/DIF F absolute NRBCs 0.0 10'3/ uL no refere nce range establ ished Not Available [facility] (Lab) [address] [facility] [facility], [place], [address], 04/12/2024 16:13:04 04/08/20 24 04/08/2024 CBC W/DIF F neutrophils 57.3 % 34.0-7 3.0 Not Available [facility] (Lab) [address] [place], [address], 04/12/2024 16:13:04 04/08/20 24 04/08/2024 CBC W/DIF F lymphocytes 35.1 % 15.0-5 0.0 Not Available [facility] (Lab) [address] [facility], [place], [address], 04/12/2024 16:13:04 04/08/20 24 04/08/2024 CBC W/DIF F monocytes 6.1 % 1.0-15 .0 Not Available [facility] (Lab) [address] [place], [address], 04/12/2024 16:13:04 04/08/20 24 04/08/2024 CBC W/DIF F eosinophils 1.0 % 0.0-8. 0 Not Available [facility] (Lab) [address] [facility], [place], [address], 04/12/2024 16:13:04 04/08/20 24 04/08/2024 CBC W/DIF F basophils 0.3 % 0.0-2. 0 Not Available [facility] (Lab) [address] [place], [address], 04/12/2024 16:13:04 04/08/20 24 04/08/2024 CBC W/DIF F immature granulocytes 0.2 % no define d refere nce range Not Available [facility] (Lab) [address] [facility], [place], [address], 04/12/2024 16:13:04 04/08/20 24 04/08/2024 CBC W/DIF F absolute neutrophils 5.1 10'3/ uL 1.5-8. 0 Not Available [facility] (Lab) [address] [place], [address], 04/12/2024 16:13:04 04/08/20 24 04/08/2024 CBC W/DIF F absolute lymphocytes 3.1 10'3/ uL 1.0-4. 0 Not Available [facility] (Lab) [address] [place], [address], 04/12/2024 16:13:04 04/08/20 24 04/08/2024 CBC W/DIF F absolute monocytes 0.5 10'3/ uL 0.2-1. 0 Not Available [facility] (Lab) [address] [facility], [place], [address], 04/12/2024 16:13:04 04/08/20 24 04/08/2024 CBC W/DIF F absolute eosinophils 0.1 10'3/ uL 0.0-0. 6 Not Available [facility] (Lab) [address] [facility], [place], [address], 04/12/2024 16:13:04 04/08/20 24 04/08/2024 CBC W/DIF F absolute basophils 0.0 10'3/ uL 0.0-0. 3 Not Available [facility] (Lab) [address] [facility], [place], [address], 04/12/2024 16:13:04 04/08/20 24 04/08/2024 CBC W/DIF F absolute immature granulocytes 0.0 10'3/ uL 0.00-0 .10 2023 4:09 AM: P indic ates parti al resul ts on a panel have been relea sed. Addit ional resul ts will follo w. 2023 4:09 AM: This resul t has been final verif ied. No addit ional or ortiz ed resul ts are expec maikel. Not Available [facility] (Lab) [address], [place], [address], 04/12/2024 16:13:04 04/08/20 24 04/08/2024 LIPID PANEL ,AMA (LDL- CALC) total cholesterol 158 mg/dL 0-199 Not Available [facility] (Lab) [address], [place], [address], 04/12/2024 16:13:05 04/08/20 24 04/08/2024 LIPID PANEL ,AMA (LDL- CALC) triglyceride s 163 mg/dL 0-150 high NCEP Refer ence Value s for Trigl yceri landen: Vonnie l: <150 mg/dL Borde rline High: 150 - 199 mg/dL High: 200 - 499 mg/dL Very High: >/= 500 mg/dL Not Available [facility] (Lab) [address] [facility], [place], [address], 04/12/2024 16:13:05 04/08/20 24 04/08/2024 LIPID PANEL ,AMA (LDL- CALC) HDL cholesterol 50 mg/dL >40 Not Available [facility] (Lab) [address] [facility], [place], [address], 04/12/2024 16:13:05 04/08/20 24 04/08/2024 LIPID PANEL ,AMA (LDL- CALC) LDL cholesterol 82 mg/dL 0-99 Cutof f value s recom lenka d by the Natio nal Jihan stero l Educa tion Progr am: DEN ABLE: Jihan stero l <200 mg/dL LDL <100 mg/dL BORDE RLINE : Jihan stero l 200-2 39 mg/dL LDL 101-1 59 mg/dL HIGHE R RISK: Jihan stero l >240 mg/dL LDL >160 mg/dL , HDL <40 mg/dL Not Available [facility] (Lab) [address] [facility], [place], [address], 04/12/2024 16:13:05 04/08/20 24 04/08/2024 LIPID PANEL ,AMA (LDL- CALC) non-HDL cholesterol 108 mg/dL no refere nce range A reaso nable goal for non-H DL jihan stero l is one that is 30 mg/dL highe r than the LDL jihan stero l goal. Not Available [facility] (Lab) [address] [facility], [place], [address], 04/12/2024 16:13:05 04/08/20 24 04/08/2024 LIPID PANEL ,AMA (LDL- CALC) chol/HDL ratio 3.2 . 0.0-5. 0 On March 17, 2023, [facility] labor atori es ortiz ed the equat ion for calcu latin g estim ated low-d ensit y lipop rotei n-cho leste rol (LDL- C) from the Fried nestor equat ion to the Abby n/Hop mehul equat ion. This new equat ion is only valid for lipid panel s with trigl yceri landen < 400 mg/dL . Studi es have demon strat ed that this new equat ion will impro ve the accur acy of LDL-C , espec ially in scena zuniga when LDL-C erin ntrat ions are relat ively low (< 100 mg/dL ), trigl yceri landen are eleva maikel, or patie nt is non-f astin g. Refer ences : - Abby cabrera, Buck Doyle, Eduardo Menjivar , Rosa Maria coffey, Salas Carrera, Salas kaiser, Darion jefferson , and Javi Rodriguez . 2013. Comp ariso n of a Novel Metho d vs the Fried nestor Equat ion for Estim ating Low-D ensit y Lipop rotei n Jihan stero l Level s from the Stand katey Lipid Profi le. JUAN: The Journ al of the Ameri can Medic al Assoc iatio n 310 (19): 2060- . - Ivone azar V, Taina J, Jessica ar A, Prisca M, Mohini e R, Jae azar E, Una jefferson RS, Michael SR, Abby cabrera SS. Fast ing Versu s Nonfa sting and Low-D ensit y Lipop rotei n Jihan stero l Accur acy. Circu latio n. 2017Nov 24;137 (1):1 0-19. Not Available [facility] (Lab) [address], [place], [address], 04/12/2024 16:13:05 04/08/20 24 04/08/2024 CMP(C OMPRE HENSI VE METAB OLIC PANEL ) sodium 139 mmol/ L 133-14 6 Not Available [facility] (Lab) [address], [place], [address], 04/12/2024 16:13:06 04/08/20 24 04/08/2024 CMP(C OMPRE HENSI VE METAB OLIC PANEL ) potassium 4.0 mmol/ L 3.5-5. 1 Not Available [facility] (Lab) [address] [facility], [place], [address], 04/12/2024 16:13:06 04/08/20 24 04/08/2024 CMP(C OMPRE HENSI VE METAB OLIC PANEL ) chloride 106 mmol/ L 98-107 Not Available [facility] (Lab) [address] [facility], [place], [address], 04/12/2024 16:13:06 04/08/20 24 04/08/2024 CMP(C OMPRE HENSI VE METAB OLIC PANEL ) carbon dioxide 26 mmol/ L 21-31 Not Available [facility] (Lab) [address], [place], [address], 04/12/2024 16:13:06 04/08/20 24 04/08/2024 CMP(C OMPRE HENSI VE METAB OLIC PANEL ) anion gap 7 mmol/ L 4-13 Not Available [facility] (Lab) [address], [place], [address], 04/12/2024 16:13:06 04/08/20 24 04/08/2024 CMP(C OMPRE HENSI VE METAB OLIC PANEL ) blood urea nitrogen 14 mg/dL 7-25 Not Available [facility] (Lab) [address] [facility], [place], [address], 04/12/2024 16:13:06 04/08/20 24 04/08/2024 CMP(C OMPRE HENSI VE METAB OLIC PANEL ) creatinine 0.89 mg/dL 0.60-1 .30 Not Available [facility] (Lab) [address] [place], [address], 04/12/2024 16:13:06 04/08/20 24 04/08/2024 CMP(C OMPRE HENSI VE METAB OLIC PANEL ) egfrcr (CKD-epi 2020) 90 mL/mi n/1.7 3_m2 >=60 Not Available [facility] (Lab) [address] [facility], [place], [address], 04/12/2024 16:13:06 04/08/20 24 04/08/2024 CMP(C OMPRE HENSI VE METAB OLIC PANEL ) calcium 9.7 mg/dL 8.3-10 .5 Not Available [facility] (Lab) [address], [place], [address], 04/12/2024 16:13:06 04/08/20 24 04/08/2024 CMP(C OMPRE HENSI VE METAB OLIC PANEL ) glucose 77 mg/dL 70-100 Not Available [facility] (Lab) [address] [facility], [place], [address], 04/12/2024 16:13:06 04/08/20 24 04/08/2024 CMP(C OMPRE HENSI VE METAB OLIC PANEL ) protein, total 7.0 g/dL 6.4-8. 3 Not Available [facility] (Lab) [address], [place], [address], 04/12/2024 16:13:06 04/08/20 24 04/08/2024 CMP(C OMPRE HENSI VE METAB OLIC PANEL ) albumin 4.6 g/dL 3.5-5. 0 Not Available [facility] (Lab) [address] [place], [address], 04/12/2024 16:13:06 04/08/20 24 04/08/2024 CMP(C OMPRE HENSI VE METAB OLIC PANEL ) ALT 10 units /L 9-43 Not Available [facility] (Lab) [address] [place], [address], 04/12/2024 16:13:06 04/08/20 24 04/08/2024 CMP(C OMPRE HENSI VE METAB OLIC PANEL ) alkaline phosphatase 69 units /L 34-104 Not Available [facility] (Lab) [address] [place], [address], 04/12/2024 16:13:06 04/08/20 24 04/08/2024 CMP(C OMPRE HENSI VE METAB OLIC PANEL ) AST 12 units /L 13-39 low Not Available [facility] (Lab) [address] [facility], [place], [address], 04/12/2024 16:13:06 04/08/20 24 04/08/2024 CMP(C OMPRE HENSI VE METAB OLIC PANEL ) bilirubin, total 0.4 mg/dL 0.2-1. 2 Not Available [facility] (Lab) [address] [place], [address], 04/12/2024 16:13:06 04/08/20 24 04/08/2024 TSH, REFLE X FREE T4 TSH 0.87 uIU/m L 0.30-5 .33 Not Available [facility] (Lab) [address] [place], [address], 04/12/2024 16:13:07 04/08/20 24 04/08/2024 VITAM IN D, 25-OH (TOTA L D2/D3 ) vitamin D, 25-hydroxy, total 32.9 NG/mL 30.0-1 00.0 Sugge stive of Defic iency : <20 ng/mL Sugge stive of Insuf ficie ncy: 20-29 ng/mL Sugge stive of Suffi cienc y: 30-10 0 ng/mL Sugge stive of Toxic ity: >150 ng/mL Not Available [facility] (Lab) [address] [facility], [place], [address], 04/12/2024 16:13:07 04/08/20 24 04/08/2024 HEPAT ITIS C (HCV) ,REAL -TIME PCR, QUANT W/GRA PH (SERI AL) hepatitis C quantitation HCV Not Detect ed IU/mL Not Available [facility] (Lab) [address] [facility], [place], [address], 04/12/2024 16:13:08 04/08/20 24 04/08/2024 HEPAT ITIS C (HCV) ,REAL -TIME PCR, QUANT W/GRA PH (SERI AL) test information: Commen t The quant itati ve range of this assay is 15 IU/mL to 100 lee on IU/mL . Perfo rmed at: 01 - [facility] [place] [address] , [place] [address] Lab Direc tor: Meagan siegel MD, Phone : [phone] Not Available [facility] (Lab) [address] [facility], [place], [address], 04/12/2024 16:13:08 04/08/20 24 04/08/2024 IMAGE GUIDE D PAP, REFLE X HPV IF ASCUS ONLY image guided Pap, reflex HPV ASCUS only SEE RESULT S BELOW CASE REPOR T: Cytol ogy Gynec ologi karla Repor t Case: [id number] Autho joshua g Provi miriam: Samira Clement MD Colle cted: 04/08 1503 Order ing Locat ion: [place] [facility] Recei kash: 04/09 0318 First Scree n: Rosalinda r, Neida ica Speci men: Scree rebecca Pap - Image d, Cervi x STATE MENT OF ADEQU ACY: Satis facto ry for evalu ation Trans forma tion zone compo nent prese nt ----- ----- ----- ----- ----- ----- ----- ----- ----- ----- ----- ----- ----- ----- ----- ----- ----- ---- FINAL DIAGN OSIS: Negat maximino for Intra epith amy cabrera or Harman montoya (NIL) . Elect danielle aquino roxana d by Neida Meehan ica on 2023 at 2:54 PM ----- ----- ----- ----- ----- ----- ----- ----- ----- ----- ----- ----- ----- ----- ----- ----- ----- ---- COMME NT: This speci men was revie wed by a Cytot echno logis t and/o r Patho logis t (as indic ated in this repor t) after evalu ation using the Thinp rep Imagi ng Syste m. CLINI KARLA INFOR MATIO N: Menst rual Statu s: LMP (if appli cable ): Clini karla Histo ry/Pr eviou s Pap: Type of Neopl sabino (if appli cable ): Signi fican t Clini karla Findi ngs: Other Histo ry: Hormo colin (if appli cable ): PAP EDUCA HEIKE L NOTE: The Pap Test is a scree rebecca test with an inher ent false negat maximino rate. Liqui d-bas ed sampl ing may decre ase, but will not elimi eduard, false negat maximino resul ts. A negat maximino resul t does not precl ude the prese nce and/o r devel opmen t of disea se, since the prese nce of abnor mal cells in the sampl e depen ds on the locat ion of the lesio n and sampl ing techn ique. Luis nued regul ar scree rebecca is the best metho d of cance r preve ntion . If repor maikel cytol ogic findi ng do not corre late with physi karla and/o r histo rical findi ngs, furth er inves tigat ion is recom lenka d, as clini karis page nted. Not Available [facility] (Lab) [address], [place], [address], 04/13/2024 15:57:26 07/28/20 24 07/28/2024 US, pelvi s No observ ation record ed. [email or web address] [address], [place], [address], 07/28/2024 18:18:48 07/28/20 24 07/28/2024 US, trans vagin al No observ ation record ed. [email or web address] [address], [place], [address], 07/28/2024 18:18:57 07/28/20 24 07/28/2024 US, pelvi s No observ ation record ed. [email or web address] [address], [place], [address], 07/28/2024 20:55:32 Result Notes None recorded. Problems Name Problem SNOMED Code Status Onset Date Resolution Date Notes Provider Name and Address Organization Details Recorded Time Pregnanc y 93989345 Completed 202011/04/2021 Gail Cavazos ehl null, [facility] 12:48:24 Syncope 535975315 Completed may be anxiety related Gail rosadol [facility] 12:48:21 Obesity 139301030 Completed Antenata l testing - schd Gail rosadol [facility] 12:48:21 Mixed anxiety and depressi ve disorder 777873104 Completed zoloft 50mg, inform pediatri sonido, inc 48 hr supervis ion after delivery Gail rosadol [facility], [facility] 12:48:21 Viral hepatiti s C 33706300 Completed +Hep C antibody - QUANT H - 08/21 MFM u/s & consult, LFT labs given, avoid scalp electrod es, prolonge d rupture of membrane s, intraute rine pressure catheter s, maternal treatmen t w/ PCP PP, notify peds and screen infant Gail portillo null, [facility] 1 12:48:20 History of intraven ous drug abuse [id number] Completed Stopped around 4 yrs ago before last pregnanc y - Get UDS @ 08/23 [facility] 12:48:21 Genital herpes simplex 24503862 Completed HSV suppress ion tx no later than 36wks - 08/21 valacycl ovir rx sent Gail Macy portillo [facility] 1 12:48:21 Large for gestatio n age fetus 203318164 Completed Gail Macy portillo [facility] 1 12:48:21 Viral hepatiti s C 67984243 Completed 07/09/2022 +Hep C antibody - QUANT H 738975 - 08/21 MFM u/s & consult, LFT labs given, avoid scalp electrod es, prolonge d rupture of membrane s, intraute rine pressure catheter s, maternal treatmen t w/ PCP PP, notify peds and screen infant Janey Britt [facility] 2 11:58:21 Genital herpes simplex 72817423 Completed 07/09/2022 HSV suppress ion tx no later than 36wks - 08/21 valacycl ovir rx sent Janey Britt [facility] 2 11:58:21 Mixed anxiety and depressi ve disorder 790987516 Completed 07/09/2022 zoloft 50mg, inform pediatri sonido, inc 48 hr supervis ion after delivery Janey Britt [facility] 2 11:58:21 Obesity 234915627 Completed 07/09/2022 Antenata l testing - schd Janey Britt [facility] 2 11:58:21 Large for gestatio n age fetus 862473464 Completed 07/09/2022 Janey rinaldi, [facility] 11:58:21 Problem Notes None recorded. Procedures Surgical History Date Name Laterality Status Provider Name and Address Organization Details Recorded Time 04/15/20 24 IUD Removal completed Silvio Clement MD [address], [place], [address], [facility] 04/15/2024 17:29:08 04/08/20 24 Date of Last Pap Smear completed Rebekah Mckeon [facility] 04/15/2024 09:59:49 01/15/20 22 IUD Insertion completed Silvio Clement MD [address], [place], [address], [facility] 01/15/2022 18:15:40 11/23/19 13 extraction of wisdom tooth completed [facility] 06/12/2021 18:35:08 11/23/19 [address] [facility] 06/12/2021 18:35:03 Imaging Results Imaging Date Name Status LastModified by Organization Details LastModified Time 07/28/2024 US, pelvis completed [email or web address] [address], [place], [address], 07/28/2024 18:18:48 07/28/2024 US, transvaginal completed [email or web address] Roshni fitzpatrick [address], [place], [address], 07/28/2024 18:18:57 07/28/2024 US, pelvis completed [email or web address] [address], [place], [address], 07/28/2024 20:55:32 Procedure Notes None recorded. Medical Equipment None Reported. Allergies Allergen ID Allergen Name Allergen Category Reaction Reaction Severity Criticality Documentation Date Start Date Code Code System Note Provider Name and Address Organization Details Recorded Time 59413 Substance with sulfonami de structure and antibacte rial mechanism of action (substanc e) medicatio n hives itching Not available Not available Not available 06/07/2021 34535 8003 SNOMED Maryann Causey [facility] 10:26:04 Medications Name Sig Start Date Stop Date Status Note LastModified by Organization Details LastModified Time vitamin d3 5000 unit capsules TAKE 1 CAPSULE BY MOUTH ONCE DAILY 04/08 completed Not Available Not Available Not Available cyclobenzap rine 10 mg tablet TAKE 1 TABLET BY MOUTH THREE TIMES DAILY NEEDED FOR MUSCLE SPASMS active Not Available Not Available No t Available amoxicillin 500 mg capsule TAKE 1 CAPSULE BY MOUTH EVERY 8 HOURS FOR 7 DAYS 08/23 completed Not Available Not Available Not Available Mirena 21 mcg/24 hr (up to 8 years) 52 mg intrauterin e device Take by intrauter ine route. 07/22 completed Not Available Not Available Not Available clindamycin HCl 300 mg capsule TAKE ONE CAPSULE BY MOUTH EVERY 6 HOURS FOR 10 DAYS 04/08 completed Not Available Not Available Not Available Lidocaine Viscous 2 % mucosal solution 06/12 completed Not Available Not Available Not Available tizanidine 4 mg tablet TAKE 1 TABLET BY MOUTH TWICE DAILY 10/11 completed Not Available Not Available Not Available meloxicam 15 mg tablet TAKE 1 TABLET BY MOUTH EVERY DAY WITH A MEAL 06/12 completed Not Available Not Available Not Available sertraline 100 mg tablet TAKE 1 TABLET BY MOUTH DAILY active Not Available Not Available No t Available acetaminoph en 300 mg-codeine 30 mg tablet TAKE 1 TABLET BY MOUTH FOUR TIMES DAILY NEEDED FOR PAIN 10/11 completed Not Available Not Available Not Available valacyclovi r 500 mg tablet TAKE 1 TABLET BY MOUTH EVERY DAY active Not Available Not Available No t Available buspirone 10 mg tablet TAKE 1 TABLET BY MOUTH TWICE DAILY 04/08 completed Not Available Not Available Not Available clotrimazol e-betametha sone 1 %-0.05 % topical cream APPLY TOPICALLY TO THE AFFECTED AND SURROUNDI NG AREAS TWICE DAILY IN THE MORNING AND IN THE EVENING FOR 2 WEEKS 04/08 completed Not Available Not Available Not Available hydroxyzine HCl 25 mg tablet TAKE 1 TABLET BY MOUTH EVERY DAY AT BEDTIME 04/08 completed Not Available Not Available Not Available ondansetron 4 mg disintegrat ing tablet DISSOLVE ONE TABLET BY MOUTH EVERY 8 HOURS NEEDED FOR NAUSEA. FIRST LINE 07/22 completed Not Available Not Available Not Available fluoxetine 20 mg capsule TAKE 1 CAPSULE BY MOUTH EVERY DAY 06/12 completed Not Available Not Available Not Available fluticasone propionate 50 mcg/actuati on nasal spray,suspe nsion USE 1 SPRAY IN EACH NOSTRIL TWICE DAILY FOR 14 DAYS 10/02 completed Not Available Not Available Not Available sertraline 50 mg tablet TAKE 1 TABLET BY MOUTH EVERY DAY 04/08 completed Not Available Not Available Not Available naproxen 500 mg tablet TAKE 1 TABLET BY MOUTH TWICE DAILY NEEDED FOR MODERATE TO SEVERE PAIN 04/08 completed Not Available Not Available Not Available amoxicillin 875 mg-potassiu m clavulanate 125 mg tablet TAKE 1 TABLET BY MOUTH TWICE DAILY FOR 10 DAYS 08/23 completed Not Available Not Available Not Available Vitamin 27 mg iron-0.8 mg tablet TAKE 1 TABLET BY MOUTH DIRECTED 04/08 completed Not Available Not Available Not Available NuvaRing 0.12 mg-0.015 mg/24 hr vaginal INSERT 1 VAGINAL RING EVERY MONTH DIRECTED 06/12 completed Not Available Not Available Not Available sofosbuvir 400 mg-velpatas vir 100 mg tablet 04/08 completed Not Available Not Available Not Available Eliquis DVT-PE Treatment 30-Day Starter 5 mg (74 tablets) in dose pack 04/08 completed Not Available Not Available Not Available Vitals Date Recorded Body height Body mass index (BMI) Body weight [id number]||2025-04-11 10:54:00|XR_ITS|BURKT|Imaging|[id number]|"EXAMINATION: XR chest 2V 04/11/2025 10:40 INDICATION: Rib pain. Cough. PROCEDURE: 2 view chest COMPARISON: No prior studies for comparison. FINDINGS: The lungs are clear. Lung apices excluded on the PA view. The cardiomediastinal silhouette is within normal limits. There are no pleural effusions. There is no pneumothorax suspected. IMPRESSION: 1: NO ACUTE CARDIOPULMONARY DISEASE. Reviewed, dictated and finalized at location B. IMPRESSION: 1: NO ACUTE CARDIOPULMONARY DISEASE. "
--- OUTSIDE RECORDS SUMMARY | 2025-04-11 10:17 | XMS_ITS | Clinical Summary ---
Author Organization [facility] Address [address] [place] [address] Phone Care Team Providers Care Fur Remodeler Name Role Phone Nichole Bruno APRN, REENA Unavailable Savage Chiang APRN, CNP Primary Care Pr ovider Allergies Active Allergy Reactions Criticality Noted Date Comments Vancomycin Rash High 03/13/2023 Medications VALACYCLOVIR HCL PO Take by mouth as needed. Active ondansetron (ZOFRAN-ODT) 4 MG TABLET DISPERSIBLEIndic ations:Nausea Take 1 Tablet by mouth every 8 hours as needed for Nausea - 1st line. 30 Tablet 1 05/13/2024 Active sertraline (ZOLOFT) 100 MG TabletIndication s:Recurrent major depressive disorder, in full remission (HCC) Take 1 Tablet by mouth daily. 90 Tablet 3 06/10/2024 Active cyclobenzaprine (FLEXERIL) 10 MG TabletIndication s:Chronic tension-type headache, not intractable TAKE 1 TABLET BY MOUTH THREE TIMES DAILY NEEDED FOR MUSCLE SPASMS 45 Tablet 1 11/18/2024 Active Active Problems Problem Noted Date Diagnosed Date ADHD 06/10/2024 Chronic hepatitis C without hepatic coma 022 Immunizations Immunization Administration Dates Next Due Hepatitis B Vaccine 06/26/2022,05/20/2022 Influenza Vaccine, Quadrivalent, PF 10/15/2021,1 12/16/2015 Influenza, Injectable, Quadrivalent 10/02/2020 MMR Vaccine 08/30/2017 TDAP Vaccine 07/10/2018,05/02/2018 Tuberculin Skin Test; Purifi ed Protein Derivative Solutiol 03/16/2024 Varicella Vaccine Live 06/10/2019,05/02/2019 Family History Medical History Relation Name Comments No Known Problems Brother 1 No Known Problems Brother 2 Suicide Attempts Brother 3 passed suic jacquelyn No Known Problems Brother 4 No Known Problems Father Bladder cancer Maternal Grandfather Hypertension Maternal Grandfather Cancer Maternal Grandmother anal ca ncer Diabetes Maternal Grandmother Hypertension Maternal Grandmother Cancer Mother Thyroid Diabetes Mother Hypertension Mother No Known Problems Sister Relation Name Status Comments Brother 1 Alive Brother 2 Alive Brother 3 Brother 4 Alive Father Other Maternal Grandfather Alive Maternal Grandmother Alive Mother Alive Sister Alive Social History Tobacco Use Types Packs/Day Years Used Date Smoking Tobacco: Former Smokeless Tobacco: Never Tobacco Cessation:Counseling Given: No Alcohol Use Standard Drinks/Week Comments Yes 0 (1 standard drink = 0.6 oz pur e alcohol) Rare Sexually Active Control Partners Comments Not Currently None Male Recently had i mplant removed. 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 Gender Identity Female 04/11/2024 1:28 PM CDT Sexual Orientation Bisexual 04/11/2024 1: 28 PM CDT Last Filed Vital Signs Vital Sign Reading Time Taken Comments Blood Pressure 116/62 07/15/2024 1:25 PM CDT Pulse 77 07/15/2024 1:25 PM CDT Temperature 36.3 C (97.4 F) 07/15/2024 1:25 PM CDT Respiratory Rate 16 07/15/2024 1:25 PM CDT Oxygen Saturation 98% 07/15/2024 1:25 PM CDT Inhaled Oxygen Concentration - - Weight 101.2 kg (223 lb) 07/15/2024 1:25 PM CDT Height 170.2 cm (5' 7 ) 07/15/2024 1:25 PM CDT Body Mass Index 34.93 07/15/2024 1:25 PM CDT Plan of Treatment Upcoming Encounters Date Type Department Care Team (Late st Contact Info) Description 06/13/2025 4:00 PM CDT Office Visit [facility] - Family Medicine - [address] [place] [address] [place] [id number] Savage Chiang APRN, ADMINISTRATIVE HEARING OFFICER [address] [address] Health Maintenance Due Date Last Done Comments Pneumococcal Immunization Combined (1 of 2 - PCV) 2013 Hepatitis B Immunization (3 of 3 - 19+ 3-dose series) 11/19/2022 06/26/2022, 05/20/2022 SARS-COV-2 Immunization (3 - 2023- season) 2024 01/11/2021, 12/13/2020 HPV/Cotest 2024 Cervical Cancer Screening (CCS) 04/08/2027 Pap Smear 04/08/2027 04/08/2024 Td Immunization Every 10 Years (Adults With 1 Tdap) 07/10/2028 07/10/2018, 05/02/2018 Respiratory Syncytial Virus (RSV) Immunization (Adult) (1 - 1-dose 75+ series) 2069 DTaP/Tdap/Td Immunization Discontinued 07/10/2018, 08/2018 Influenza Immunization Completed , 10/15/2021, 10/02/2020, Additional history exists Meningococcal Immunization (ACWY) Aged Out No longer eligible based on patient's age to complete this topic Rotavirus Immunization Aged Out No lo nger eligible based on patient's age to complete this topic Insurance MEDICAID [facility] Care Teams Fur Remodeler Relationship Specialty Start Date End Date Savage Chiang APRN, ADMINISTRATIVE HEARING OFFICER [address] [address] PCP - General Advanced Practice Nurse 06/10/24 Nichole Bruno APRN, ADMINISTRATIVE HEARING OFFICER [address] [place] [address] Nurse Practitioner Advanced Practice Nurse 04/02/23
--- OUTSIDE RECORDS SUMMARY | 2025-04-11 10:17 | XMS_ITS | Clinical Summary ---
Author Organization [facility] Address [address] [place] [address] Care Team Providers Care Bag Cutter Name Role Phone Silvio Clement MD Unavailable [phone] Unknown, Notinfile Primary Care Provider Unavail able [...] placed around 10/2021 - follows with [facility] Tension type headache 03/13/2023 Assessment & [...] PPD TEST 03/16/2024 Tdap 07/10/2018,05/02/2018 Varicella 06/10/2019,05/02/2019 Surgical History Surgery Date Site/Laterality Comments TONSILLECTOMY WISDOM TOOTH EXTRACTION Medical History Medical History Date Comments DVT (deep venous thrombosis) (HCC) Depression Hepatitis C Social History Tobacco Use Types Packs/Day Years [...] on file Legal Sex Female 7:03 AM AUDITOR Gender Identity Not on file Sexual Orientation Not on file Obstetrics History Last Filed Vital Signs Vital Sign Reading [...] 03/16/2024 12:12 PM CDT Plan of Treatment Health Maintenance Due Date Last Done Comments Cervical Cancer Screening 1994 Regular Well Visit/Exam 18-64 2012 Pneumococcal vaccine <65 (1 of 2 - PCV) 2013 Depression Screening 07/08/2024 07/08/2023, 04/10/2023, 03/13/2023 Covid-19 Vaccine ( season) 2024 01/11/2021, 12/13/2020 Influenza Vaccine (Season Ended) 2025 10/15/2021, 10/02/2020, 10/16/2016 DTaP/Tdap/Td Vaccine (4 - Td or Tdap) 09/27/2033 09/27/2023, 07/10/2018, 05/02/2018 Varicella Vaccines Completed 06/10/2019, 05/02/2019 Hepatitis C Screening Completed 07/18/2023 , 07/08/2023, 03/18/2023, Additional history exists HPV Vaccines Aged Out No longer eligi ble based on patient's age to complete this topic Procedures Procedure Name Priority Date/Time Associated Diagnosis [...] MICROBIOLOGY - GENE RAL ORDERABLES Final Result [facility] [address] [place] [address] from Last 3 Months or Most Recently Relevant to Health Maintenance Insurance [facility] [place] [facility] Address: [address] [place] [id number] [employer] [place] Care Teams Bag Cutter Relationship Specialty Start Date End Date Unknown, Notinfile PCP - General 03/16/24 Silvio Clement MD [address] [place] [address] Referring Physician Obstetrics and Gynecology 03/13/23
--- NOTE | 2025-04-11 11:05 | ED.GENADULT ---
HPI - General Adult General Chief complaint: Upper Respiratory Infection Stated complaint: cough/sinus congestion/sweating Source: patient Mode of arrival: ambulatory Limitations: no limitations History of Present Illness HPI narrative: Patient presents for evaluation of sick symptoms for last 4 days. Symptoms include, pleuritic chest discomfort with coughing alone, mild shortness of breath, nausea and subjective fever. No vomiting or diarrhea. No recent sick contacts to her knowledge. She has tried taking an antitussive for her symptoms. She smokes marijuana but not cigarettes. She went to urgent care yesterday for her symptoms and had negative COVID and flu testing. She was given a script for brand name azithromycin. Her insurance did not cover it. She has been trying to contact the urgent care about switching to generic azithromycin. Related Data Home Medications Medication Instructions Recorded Confirmed Last Taken Type azithromycin 250 mg tablet mg 04/11/25 Unknown History sertraline 100 mg tablet mg 04/11/25 Unknown History Allergies Allergy/AdvReac Type Severity Reaction Status Date / Time vancomycin Allergy Intermediate Redness of Verified 04/11/25 10:13 Skin Review of Systems Review of Systems: CONSTITUTIONAL: Reports subjective fever. Denies chills, or sweats. EYES: Denies visual changes, redness, or discharge. ENT: Denies rhinorrhea, congestion, sore throat, or otalgia. CARDIOVASCULAR: Denies palpitations or edema. RESPIRATORY:Reports cough, SOB and pleuritic chest pain GASTROINTESTINAL: Reports nausea. Denies abdominal pain, vomiting, or diarrhea. GENITOURINARY: Denies dysuria or hematuria. SKIN: Denies rash or itching. MUSCULOSKELETAL: Denies back pain, joint pain, or myalgia. NEUROLOGIC: Denies headache, numbness, dizziness, or weakness. PSYCHIATRIC: Denies anxiety or depression. [facility] Past Medical History Medical History No pertinent past medical history Surgical History Surgical History No pertinent past surgical history Family History Family History Mother Cancer Diabetes mellitus Grandparent Cancer Diabetes mellitus Father Fatty liver Heart disease Social History Social History Smoking status: Former smoker Second hand tobacco smoke exposure: No Substance use: current Substance use type: marijuana Gender identity (if verbalized by the patient): Female Spiritual care concerns: No Exam Narrative: GENERAL: Well-appearing, well-nourished, and in no acute distress. HEAD: Normocephalic, atraumatic. EYES: PERRLA and EOMI. ENT: Nares clear, no rhinorrhea or epistaxis. Mucous membranes moist. Oropharynx without tonsillar hypertrophy exudate or other lesions. Bilateral TMs pearly huang nonbulging NECK: Supple. No adenopathy or masses. No carotid bruits or JVD CHEST:Cough present on exam. Wheezing and rales present. No respiratory distress. HEART: Regular rate and rhythm. No murmur heard. Normal peripheral pulses. ABDOMEN: Soft, nontender, nondistended, normal active bowel sounds. EXTREMITIES: Normal range of motion. No edema. SKIN: Warm, dry, no rash. NEURO: No focal deficits. Alert and oriented x3. PSYCH: Normal mood and affect. Course Course Emergency Course: This is a 29-year-old female who presented for evaluation of a cough. Chest x-ray was negative. Exam is consistent with acute viral syndrome. Discharge with prednisone and albuterol. She still plans to stop at the urgent care where she was seen yesterday for a modification to her azithromycin script. She was advised to avoid marijuana. She should follow up with her PCP and go to the ER for worsening symptoms. Pt in agreement with plan of care. Level of Care: Express Care Visit Vital Signs Vital signs: Vital Signs Temperature 36.7 C 04/11/25 10:08 Pulse Rate 80 04/11/25 10:08 Respiratory Rate 20 04/11/25 10:08 Blood Pressure 132/89 04/11/25 10:08 Pulse Oximetry 98 04/11/25 10:08 Oxygen Delivery Room Air 04/11/25 10:08 Temperature 36.7 C 04/11/25 10:08 Pulse Rate 80 04/11/25 10:08 Respiratory Rate 20 04/11/25 10:08 Blood Pressure 132/89 04/11/25 10:08 Pulse Oximetry 98 04/11/25 10:08 Oxygen Delivery Room Air 04/11/25 10:08 Medical Decision Making Vital Signs Vital Signs: Vital Signs Temperature 36.7 C 04/11/25 10:08 Pulse Rate 80 04/11/25 10:08 Respiratory Rate 20 04/11/25 10:08 Blood Pressure 132/89 04/11/25 10:08 Pulse Oximetry 98 04/11/25 10:08 Oxygen Delivery Room Air 04/11/25 10:08 Temperature 36.7 C 04/11/25 10:08 Pulse Rate 80 04/11/25 10:08 Respiratory Rate 20 04/11/25 10:08 Blood Pressure 132/89 04/11/25 10:08 Pulse Oximetry 98 04/11/25 10:08 Oxygen Delivery Room Air 04/11/25 10:08 Imaging Data Radiologist's impression: EXAMINATION: XR chest 2V 04/11/2025 10:40 INDICATION: Rib pain. Cough. PROCEDURE: 2 view chest COMPARISON: No prior studies for comparison. FINDINGS: The lungs are clear. Lung apices excluded on the PA view. The cardiomediastinal silhouette is within normal limits. There are no pleural effusions. There is no pneumothorax suspected. IMPRESSION: 1: NO ACUTE CARDIOPULMONARY DISEASE. Discharge Plan Discharge Clinical Impression: Upper respiratory infection, viral Patient Disposition: Home Condition: Stable Instructions: Antibiotic Form, Upper Respiratory Infection (ED), Viral Syndrome (ED) Patient Language: Uzbek Prescriptions: New prednisone 50 mg tablet 50 mg PO DAILY Qty: 5 0RF albuterol sulfate [Ventolin HFA] 90 mcg/actuation HFA aerosol inhaler 2 puff inhalation QID PRN (Reason: shortness of breath or wheezing) Qty: 8.5 0RF No Action azithromycin 250 mg tablet sertraline 100 mg tablet Follow-up/Referrals: Nithin Watkins MD [Physician] - Time of Disposition: 11:03
== END 2025-04-11 11:14 | disposition home or self-care (01) ==
PROVIDERS: Emergency Provider Nurse Practitioner
DX: J06.9 Acute upper respiratory infection, unspecified (principal); F12.90 Cannabis use, unspecified, uncomplicated; Z87.891 Personal history of nicotine dependence
CPT/HCPCS: 71046; 99213; G0463

== ENCOUNTER 2025-11-03 08:50 | Emergency (ER) | payer BC, OTHER, SELFPAY ==
[2025-11-03 08:58] VITALS: BP 105/76; PULSE 82; RESP 18; TEMP 36.5; O2SAT 99
--- NOTE | 2025-11-03 09:33 | ED.SKABFB ---
HPI - Skin/Abscess/Foreign Bdy General Chief complaint: Skin/Abscess/Foreign Body Stated complaint: rash on right arm Time Seen by Provider: 11/03/25 09:20 Source: patient and RN notes reviewed Mode of arrival: ambulatory Limitations: no limitations History of Present Illness HPI narrative: 30-year-old female presents Express Care complaining of rash to her right arm. Patient said started approximately 5 days ago. Patient said she was doing [employer] arts and crafts believe she might have got some on her skin. Since then she reports redness, swelling, and itchiness. Patient also reports blisters. Patient denies any pain, fevers, body aches, chills, purulent drainage, or any other symptoms. Patient has tried calamine lotion without relief. Related Data Home Medications ?Medication ?Instructions ?Recorded ?Confirmed ?Last Taken ?Type sertraline 100 mg tablet mg 04/11/25 Unknown History Allergies Allergy/AdvReac Type Severity Reaction Status Date / Time vancomycin Allergy Intermediate Redness of Verified 11/03/25 09:06 Skin Review of Systems Review of Systems: CONSTITUTIONAL: Denies fever, chills, or sweats. EYES: Denies visual changes, redness, or discharge. ENT: Denies rhinorrhea, congestion, sore throat, or otalgia. CARDIOVASCULAR: Denies chest pain, palpitations, or edema. RESPIRATORY: Denies cough or dyspnea. GASTROINTESTINAL: Denies abdominal pain, nausea, vomiting, or diarrhea. GENITOURINARY: Denies dysuria or hematuria. SKIN: Positive for rash and itching. MUSCULOSKELETAL: Denies back pain, joint pain, or myalgia. NEUROLOGIC: Denies headache, numbness, or weakness. PSYCHIATRIC: Denies anxiety or depression. All other systems reviewed are negative, except as documented in HPI. [facility] Past Medical History Medical History No pertinent past medical history Surgical History Surgical History No pertinent past surgical history Family History Family History Mother Cancer Diabetes mellitus Grandparent Cancer Diabetes mellitus Father Fatty liver Heart disease Social History Social History Smoking status: Former smoker Second hand tobacco smoke exposure: No Substance use: current Substance use type: marijuana Gender identity (if verbalized by the patient): Female Spiritual care concerns: No Comments At the time of my signature, I reviewed and agree with the nursing past medical, surgical, social, and family history. There is no relevant family history pertinent to the patient complaint. Exam Narrative: GENERAL: This is a well-nourished, well-developed adult, in no apparent distress. They are non ill-appearing, nontoxic appearing. HEAD: normocephalic, atraumatic. EYES: Sclera clear/white. Conjunctiva normal. Vision is grossly intact. Extraocular movements intact EARS: External ears normal, Hearing grossly intact. NOSE: External nose normal THROAT: Mucous membranes moist, NECK: Neck supple, CARDIOVASCULAR: Regular rate and rhythm RESPIRATORY: Respiratory rate normal, respiratory effort nonlabored, no respiratory distress. SKIN: Right arm: Erythematous pruritic, vesicular macular rash to the right arm extending from mid humerus to mid forearm. Skin is indurated. Nontender to palpate, no exudate, no area of fluctuance. NEURO: awake, alert, and oriented to person, place and time. There were no obvious focal neurologic abnormalities. EXTREMITIES: No joint tenderness, effusion, or edema noted. BACK: Nontender without deformity. Course Course Level of Care: Express Care Visit Vital Signs Vital signs: Vital Signs Temperature 97.7 F 11/03/25 08:58 Pulse Rate 82 11/03/25 08:58 Respiratory Rate 18 11/03/25 08:58 Blood Pressure 105/76 11/03/25 08:58 Pulse Oximetry 99 11/03/25 08:58 Oxygen Delivery Room Air 11/03/25 08:58 Temperature 97.7 F 11/03/25 08:58 Pulse Rate 82 11/03/25 08:58 Respiratory Rate 18 11/03/25 08:58 Blood Pressure 105/76 11/03/25 08:58 Pulse Oximetry 99 11/03/25 08:58 Oxygen Delivery Room Air 11/03/25 08:58 MDM MDM Narrative Medical decision making narrative: Patient likely has contact dermatitis. Will give her triamcinolone cream. Discussed supportive care. Discussed physical exam findings. Advised supportive measures and signs/symptoms to go to the ER. Pt is appropriate for outpt treatment and f/u. Differential Diagnosis Differential Diagnosis: Contact dermatitis, eczema, cellulitis, allergic reaction Critical Care Time Critical Care Time Critical Care Time: No Discharge Plan Discharge Clinical Impression: Contact dermatitis Qualifiers: Contact dermatitis type: unspecified Contact dermatitis trigger: unspecified trigger Qualified Code(s): L25.9 - Unspecified contact dermatitis, unspecified cause Patient Disposition: Home Condition: Stable Instructions: Contact Dermatitis (ED) Additional Instructions: Use the triamcinolone cream as directed. You may use calamine lotion, camphor,, Benadryl cream as needed for itchiness symptoms. You may also take Zyrtec or Claritin as needed for allergy or itchiness symptoms. Follow-up PCP in 3-5 days. If you develop any worsening redness, swelling, discharge, fevers, breathing problems, or any other concerns please go to the ER immediately. Patient Language: Jordanian Prescriptions: New triamcinolone acetonide 0.5 % cream 1 applic topical BID 7 Days Qty: 15 0RF No Action sertraline 100 mg tablet Follow-up/Referrals: PHYSICIAN NOT ON STAFF,NONSTAFF [Primary Care Provider] Time of Disposition: 09:29
== END 2025-11-03 09:35 | disposition home or self-care (01) ==
DX: L25.9 Unspecified contact dermatitis, unspecified cause (principal); Z87.891 Personal history of nicotine dependence; F12.90 Cannabis use, unspecified, uncomplicated
CPT/HCPCS: 99213; G0463

== ENCOUNTER 2025-11-12 12:46 | Emergency (ER) | payer BC, OTHER, SELFPAY ==
--- OUTSIDE RECORDS SUMMARY | 2025-11-12 12:50 | XMS_ITS | Clinical Summary ---
Author Organization [facility] Address [address] [place] [address] Phone Care Team Providers Care Pocket Secretary Assembler Name Role Phone Nichole Bruno APRN, REENA Unavailable Savage Chiang APRN, CNP Primary Care Pr ovider Allergies Active Allergy Reactions Criticality Noted Date Comments Vancomycin Rash High 03/13/2023 Medications ondansetron (ZOFRAN-ODT) 4 MG TABLET DISPERSIBLEIndic ations:Nausea Take 1 Tablet by mouth every 8 hours as needed for Nausea - 1st line. 30 Tablet 1 05/13/2024 Active cyclobenzaprine (FLEXERIL) 10 MG TabletIndication s:Chronic tension-type headache, not intractable Take 1 Tablet by mouth 3 times daily as needed for Muscle spasms. 45 Tablet 1 06/13/2025 Active sertraline (ZOLOFT) 100 MG TabletIndication s:Recurrent major depressive disorder, in full remission Take 1 Tablet by mouth daily. 90 Tablet 3 06/13/2025 Active Active Problems Problem Noted Date Diagnosed Date ADHD 06/10/2024 Chronic hepatitis C without hepatic coma 022 Immunizations Immunization Administration Dates Next Due Hepatitis B Vaccine 06/26/2022,05/20/2022 Influenza Vaccine, Quadrivalent, PF 10/15/2021,1 12/16/2015 Influenza, Injectable, Quadrivalent 10/02/2020 MMR Vaccine 08/30/2017 Pneumococcal conjugate PCV20 , polysaccharide [id number] conjugate, adjuvant, PF 06/13/2025 TDAP Vaccine 07/10/2018,05/02/2018 Tuberculin Skin Test; Purifi [...] = 0.6 oz pur e alcohol) Rare PHQ-2 Answer Date Recorded Total Score - Questions 1-9 0 05/24 Sexually Active Control Partners Comments Not Currently None, Abstinence Male Recently h ad implant removed. 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 Gender Identity Female 04/11/2024 1:28 PM CDT Sexual Orientation Bisexual 04/11/2024 1: 28 PM CDT Last Filed Vital Signs Vital Sign Reading Time Taken Comments Blood Pressure 135/74 06/30/2025 11:30 PM CDT Pulse 85 06/30/2025 11:30 PM CDT Temperature 36.6 C (97.8 F) 06/30/2025 11:30 PM CDT Respiratory Rate 16 06/30/2025 11:30 PM CDT Oxygen Saturation 99% 06/30/2025 11:30 PM CDT Inhaled Oxygen Concentration - - Weight 99.8 kg (220 lb) 06/30/2025 11:30 PM CDT Height 170.2 cm (5' 7) 06/30/2025 11:30 PM CDT Body Mass Index 34.46 06/30/2025 11:30 PM CDT Plan of Treatment Upcoming Encounters Date Type Department Care Team (Late st Contact Info) Description 11/17/2025 9:15 AM PAPER TESTER Office Visit [facility] [place] [address] [place] [place] [address] Savage Chiang, MAGAZINE FEEDER, SQUILGEER [address] [address] Health Maintenance Due Date Last Done Comments Hepatitis B Immunization (3 of 3 - 19+ 3-dose series) 11/19/2022 06/26/2022, 05/20/2022 HPV/Cotest 2024 SARS-COV-2 Immunization (2024- season) 2025 01/11/2021, 12/13/2020 Cervical Cancer Screening (CCS) 04/08/2027 Pap Smear 04/08/2027 04/08/2024 Td Immunization Every 10 Years (Adults With 1 Tdap) 07/10/2028 07/10/2018, 05/02/2018 Respiratory Syncytial Virus (RSV) Immunization (Adult) (1 - 1-dose 75+ series) 2069 DTaP/Tdap/Td Immunization Discontinued 07/10/2018, 08/2018 Varicella Immunization Completed 06/10/2019, 2018 Pneumococcal Immunization Combined Completed 06/13/2025 Influenza Immunization Completed , 08/30/2024, 10/15/2021, Additional history exists Human Papillomavirus (HPV) Immunization (No Doses Required) Completed Meningococcal Immunization (ACWY) Aged Out No longer eligible based on patient's age to complete this topic Rotavirus Immunization Aged Out No lo nger eligible based on patient's age to complete this topic Insurance [place] [facility] MEDICAID [place] Member Subscriber Plan / Payer (Ef fective 2021-Present) Name:Romero Nevesna Ria Relation to Subscriber:Self Name:Romero Nevesna Ria Payer ID:[id number] Type:PPO Address: [address] Care Teams Pocket Secretary Assembler Relationship Specialty Start Date End Date Savage Chiang APRN, CNP [address] [address] PCP - General Advanced Practice Nurse 06/10/24 Nichole Bruno APRN, CNP [address] [place] [address] Nurse Practitioner Advanced Practice Nurse 04/02/23
--- OUTSIDE RECORDS SUMMARY | 2025-11-12 12:50 | XMS_ITS | Clinical Summary ---
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 Gender Identity Not on file Sexual Orientation [...] 12:12 PM CDT Height 170.2 cm (5' 7) 03/16/2024 12:12 PM CDT Body Mass Index 34.93 03/16/2024 12:12 PM CDT Plan of Treatment Health Maintenance Due Date Last Done Comments Cervical Cancer Screening 1994 Regular Well Visit/Exam 18-64 2012 Pneumococcal vaccine <65 (1 of 2 - PCV) 2013 HPV Vaccines (1 - 3-dose SCD M series) 2021 Depression Screening 07/08/2024 07/08/2023, 04/10/2023, 03/13/2023 Covid-19 Vaccine (3 - 2024-2 6 season) 2025 01/11/2021, 12/13/2020 Influenza Vaccine (#1) 2025 , 10/02/2020, 10/16/2016 DTaP/Tdap/Td Vaccine (4 - Td or Tdap) 09/27/2033 09/27/2023, 07/10/2018, 05/02/2018 Varicella Vaccines Completed 06/10/2019, 05/02/2019 Hepatitis C Screening Completed 07/18/2023 , 07/08/2023, 03/18/2023, Additional history exists Procedures Procedure Name Priority Date/Time Associated Diagnosis [...] - GENE RAL ORDERABLES Final Result [facility] [address] [place] [address] from Last 3 Months or Most Recently Relevant to Health Maintenance Insurance IDPA [facility] ANTHEM PREFERRED IDPA ANTHEM ACCESS [place] Care Teams Director Database Relationship Specialty Start Date End Date Unknown, Notinfile PCP - General 03/16/24 Silvio Clement MD [address] [place] [address] Referring Physician Obstetrics and Gynecology 03/13/23
--- OUTSIDE RECORDS SUMMARY | 2025-11-12 12:51 | XMS_ITS | Data Portability ---
Author Organization [facility] Address [address] [place] [address] Care Team Providers Care Filter Washer Name Role Phone GREGG FARLEY Primary Care Provider Assessment Encounter Date Assessment Date Assessment LastModified by Organization Details LastModified Time 04/08/2024 04/08/2024 Annual gynecological exam performed. Patient will come back in a year unless there are new symptoms. [email or web address] Not available 04/08/2024 15:11:52 Plan of Treatment Reminders Order Date Submit Date Provider Last Modified By Organization Details Last Modified Time Details Appointments None recorded. Lab CBC w/ auto diff 2023 024 [facility] (Lab), [address], [place], [address], 4 16:13:04 CMP, serum or plasma 2023 024 [facility] (Lab), [address] [place], [address], 4 16:13:06 lipid panel, blood 2023 024 [facility] (Lab), [address] [place], [address], 4 16:13:05 TSH, serum or plasma 2023 024 [facility] (Lab), [address] [place], [address], 4 16:13:07 vitamin D, 25-hydroxy, total, serum 2023 024 [facility] (Lab), [address] [facility], [place], [address], 4 16:13:07 pap, IG + HR HPV - HPV regardless but if HPV is positive need subtyping 16,18/45 2023 024 [facility] (Lab), [address] [facility], [place], [address], 4 15:30:47 hepatitis C RNA, quant, PCR, serum 2023 024 [facility] (Lab), [address] [facility], [place], [address], 4 16:13:08 Referral None recorded. Procedures None recorded. Surgeries None recorded. Imaging US, pelvis 2023 024 [email or web address], [place], [address], 4 18:12:54 US, transvagina l 2023 024 [email or web address] [address], [address], [place], [address], 4 18:18:29 Medication Orders None recorded. Patient [...] Weeks 8,099 - 58,17 6 Not Available [facility] (Lab) [address] , [place], [address], 01/15/2022 03:44:26 01/15/20 22 01/15/2022 CT/GC AND TRICH OMONA S VAGIN GURJIT (RRNA ), URINE chlamydia trachomatis, PCR Negati ve negati ve Not Available [facility] (Lab) [address], [place], [address], 01/16/2022 13:43:25 01/15/20 22 01/15/2022 CT/GC AND TRICH OMONA S VAGIN GURJIT (RRNA ), URINE neisseria gonorrhoeae, PCR Negati ve negati ve Not Available [facility] (Lab) [address], [place], [address], 01/16/2022 13:43:25 01/15/20 22 01/15/2022 CT/GC AND TRICH OMONA S VAGIN GURJIT (RRNA ), URINE trichomonas vaginalis ribosomal RNA (rrna) Negati ve negati ve Not Available [facility] (Lab) [address], [place], [address], 01/16/2022 13:43:25 04/08/20 24 04/08/2024 CBC W/DIF F WBC 8.9 10'3/ uL 3.5-10 .5 Not Available [facility] (Lab) [address], [place], [address], 04/12/2024 16:13:04 04/08/20 24 04/08/2024 CBC W/DIF F RBC 4.59 10'6/ uL (based on docume nted legal sex) 3.80-5 .20 Not Available [facility] (Lab) [address], [place], [address], 04/12/2024 16:13:04 04/08/20 24 04/08/2024 CBC W/DIF F HGB 13.9 g/dL (based on docume nted legal sex) 11.6-1 5.4 Not Available [facility] (Lab) [address], [place], [address], 04/12/2024 16:13:04 04/08/20 24 04/08/2024 CBC W/DIF F HCT 42.6 % (based on docume nted legal sex) 34.0-4 5.0 Not Available [facility] (Lab) [address], [place], [address], 04/12/2024 16:13:04 04/08/20 24 04/08/2024 CBC W/DIF F MCV 92.8 fL 80.0-9 9.0 Not Available [facility] (Lab) [address], [place], [address], 04/12/2024 16:13:04 04/08/20 24 04/08/2024 CBC W/DIF F MCH 30.3 pg 27.0-3 4.0 Not Available [facility] (Lab) [address], [place], [address], 04/12/2024 16:13:04 04/08/20 24 04/08/2024 CBC W/DIF F MCHC 32.6 g/dL 32.0-3 5.5 Not Available [facility] (Lab) [address] [facility], [place], [address], 04/12/2024 16:13:04 04/08/20 24 04/08/2024 CBC W/DIF F RDW 12.2 % 11.0-1 5.0 Not Available [facility] (Lab) [address] [facility], [place], [address], 04/12/2024 16:13:04 04/08/20 24 04/08/2024 CBC W/DIF F plt 344 10'3/ uL 150-40 0 Not Available [facility] (Lab) [address] [facility], [place], [address], 04/12/2024 16:13:04 04/08/20 24 04/08/2024 CBC W/DIF F MPV 10.5 fL 8.8-12 .1 Not Available [facility] (Lab) [address] [facility], [place], [address], 04/12/2024 16:13:04 04/08/20 24 04/08/2024 CBC W/DIF F NRBC's 0.0 % 0.0 Not Available [facility] (Lab) [address] [facility], [place], [address], 04/12/2024 16:13:04 04/08/20 24 04/08/2024 CBC W/DIF F absolute NRBCs 0.0 10'3/ uL no refere nce range establ ished Not Available [facility] (Lab) [address] [facility], [place], [address], 04/12/2024 16:13:04 04/08/20 24 04/08/2024 CBC W/DIF F neutrophils 57.3 % 34.0-7 3.0 Not Available [facility] (Lab) [address] [facility], [place], [address], 04/12/2024 16:13:04 04/08/20 24 04/08/2024 CBC W/DIF F lymphocytes 35.1 % 15.0-5 0.0 Not Available [facility] (Lab) [address] [place], [address], 04/12/2024 16:13:04 04/08/20 24 04/08/2024 CBC W/DIF F monocytes 6.1 % 1.0-15 .0 Not Available [facility] (Lab) [address] [place], [address], 04/12/2024 16:13:04 04/08/20 24 04/08/2024 CBC W/DIF F eosinophils 1.0 % 0.0-8. 0 Not Available [facility] (Lab) [address] [facility], [place], [address], 04/12/2024 16:13:04 04/08/20 24 04/08/2024 CBC W/DIF F basophils 0.3 % 0.0-2. 0 Not Available [facility] (Lab) [address] [facility], [place], [address], 04/12/2024 16:13:04 04/08/20 24 04/08/2024 CBC W/DIF F immature granulocytes 0.2 % no define d refere nce range Not Available [facility] (Lab) [address] [place], [address], 04/12/2024 16:13:04 04/08/20 24 04/08/2024 CBC W/DIF F absolute neutrophils 5.1 10'3/ uL 1.5-8. 0 Not Available [facility] (Lab) [address] [place], [address], 04/12/2024 16:13:04 04/08/20 24 04/08/2024 CBC W/DIF F absolute lymphocytes 3.1 10'3/ uL 1.0-4. 0 Not Available [facility] (Lab) [address] [place], [address], 04/12/2024 16:13:04 04/08/20 24 04/08/2024 CBC W/DIF F absolute monocytes 0.5 10'3/ uL 0.2-1. 0 Not Available [facility] (Lab) [address] [facility], [place], [address], 04/12/2024 16:13:04 04/08/20 24 04/08/2024 CBC W/DIF F absolute eosinophils 0.1 10'3/ uL 0.0-0. 6 Not Available [facility] (Lab) [address] [facility], [place], [address], 04/12/2024 16:13:04 04/08/20 24 04/08/2024 CBC W/DIF F absolute basophils 0.0 10'3/ uL 0.0-0. 3 Not Available [facility] (Lab) [address] [facility], [place], [address], 04/12/2024 16:13:04 04/08/20 24 04/08/2024 CBC W/DIF [...] resul ts are expec maikel. Not Available [facility] (Lab) [address] [facility], [place], [address], 04/12/2024 16:13:04 04/08/20 24 04/08/2024 LIPID PANEL ,AMA (LDL- CALC) total cholesterol 158 mg/dL 0-199 Not Available [facility] (Lab) [address] [facility], [place], [address], 04/12/2024 16:13:05 04/08/20 24 04/08/2024 LIPID PANEL ,AMA (LDL- CALC) triglyceride s 163 mg/dL 0-150 high NCEP Refer ence Value s for Trigl yceri landen: Vonnie l: <150 mg/dL Borde rline High: 150 - 199 mg/dL High: 200 - 499 mg/dL Very High: >/= 500 mg/dL Not Available [facility] (Lab) [address] [facility], [place], [address], 04/12/2024 16:13:05 04/08/20 24 04/08/2024 LIPID PANEL ,AMA (LDL- CALC) HDL cholesterol 50 mg/dL >40 Not Available [facility] (Lab) [address] [place], [address], 04/12/2024 16:13:05 04/08/20 24 04/08/2024 LIPID PANEL [...] mg/dL , HDL <40 mg/dL Not Available [facility] (Lab) [address] [facility], [place], [address], 04/12/2024 16:13:05 04/08/20 24 04/08/2024 LIPID PANEL ,AMA (LDL- CALC) non-HDL cholesterol 108 mg/dL no refere nce range A reaso nable goal for non-H DL jihan stero l is one that is 30 mg/dL highe r than the LDL jihan stero l goal. Not Available [facility] (Lab) [address] [place], [address], 04/12/2024 16:13:05 04/08/20 24 04/08/2024 LIPID PANEL ,AMA (LDL- CALC) chol/HDL ratio 3.2 . 0.0-5. 0 On March 17, 2023, [facility] labor atori becky ortiz ed the equat ion for calcu [...] - Ivone azar V, Taina J, Jessica azar A, Prisca M, Mohini e R, Jae azar E, Una jefferson RS, Michael SR, Abby cabrera SS. Fast ing Versu s Nonfa sting and Low-D ensit y Lipop rotei n Jihan stero l Accur acy. Circu latio n. 2017Nov 24;137 (1):1 0-19. Not Available [facility] (Lab) [address], [place], [address], 04/12/2024 16:13:05 04/08/20 24 04/08/2024 CMP(C OMPRE HENSI VE METAB OLIC PANEL ) sodium 139 mmol/ L 133-14 6 Not Available [facility] (Lab) [address] [facility], [place], [address], 04/12/2024 16:13:06 04/08/20 24 04/08/2024 CMP(C OMPRE HENSI VE METAB OLIC PANEL ) potassium 4.0 mmol/ L 3.5-5. 1 Not Available [facility] (Lab) [address] [facility], [place], [address], 04/12/2024 16:13:06 04/08/20 24 04/08/2024 CMP(C OMPRE HENSI VE METAB OLIC PANEL ) chloride 106 mmol/ L 98-107 Not Available [facility] (Lab) [address] [facility], [place], [address], 04/12/2024 16:13:06 04/08/20 24 04/08/2024 CMP(C OMPRE HENSI VE METAB OLIC PANEL ) carbon dioxide 26 mmol/ L 21-31 Not Available [facility] (Lab) [address] [facility], [place], [address], 04/12/2024 16:13:06 04/08/20 24 04/08/2024 CMP(C OMPRE HENSI VE METAB OLIC PANEL ) anion gap 7 mmol/ L 4-13 Not Available [facility] (Lab) [address] [facility], [place], [address], 04/12/2024 16:13:06 04/08/20 24 04/08/2024 CMP(C OMPRE HENSI VE METAB OLIC PANEL ) blood urea nitrogen 14 mg/dL 7-25 Not Available [facility] (Lab) [address] [facility], [place], [address], 04/12/2024 16:13:06 04/08/20 24 04/08/2024 CMP(C OMPRE HENSI VE METAB OLIC PANEL ) creatinine 0.89 mg/dL 0.60-1 .30 Not Available [facility] (Lab) [address] [facility], [place], [address], 04/12/2024 16:13:06 04/08/20 24 04/08/2024 CMP(C OMPRE HENSI VE METAB OLIC PANEL ) egfrcr (CKD-epi 2020) 90 mL/mi n/1.7 3_m2 >=60 Not Available [facility] (Lab) [address] [facility], [place], [address], 04/12/2024 16:13:06 04/08/20 24 04/08/2024 CMP(C OMPRE HENSI VE METAB OLIC PANEL ) calcium 9.7 mg/dL 8.3-10 .5 Not Available [facility] (Lab) [address] [facility], [place], [address], 04/12/2024 16:13:06 04/08/20 24 04/08/2024 CMP(C OMPRE HENSI VE METAB OLIC PANEL ) glucose 77 mg/dL 70-100 Not Available [facility] (Lab) [address] [facility], [place], [address], 04/12/2024 16:13:06 04/08/20 24 04/08/2024 CMP(C OMPRE HENSI VE METAB OLIC PANEL ) protein, total 7.0 g/dL 6.4-8. 3 Not Available [facility] (Lab) [address] [facility], [place], [address], 04/12/2024 16:13:06 04/08/20 24 04/08/2024 CMP(C OMPRE HENSI VE METAB OLIC PANEL ) albumin 4.6 g/dL 3.5-5. 0 Not Available [facility] (Lab) [address] [facility], [place], [address], 04/12/2024 16:13:06 04/08/20 24 04/08/2024 CMP(C OMPRE HENSI VE METAB OLIC PANEL ) ALT 10 units /L 9-43 Not Available [facility] (Lab) [address] [facility], [place], [address], 04/12/2024 16:13:06 04/08/20 24 04/08/2024 CMP(C OMPRE HENSI VE METAB OLIC PANEL ) alkaline phosphatase 69 units /L 34-104 Not Available [facility] (Lab) [address] [place], [address], 04/12/2024 16:13:06 04/08/20 24 04/08/2024 CMP(C OMPRE HENSI VE METAB OLIC PANEL ) AST 12 units /L 13-39 low Not Available [facility] (Lab) [address] [facility], [place], [address], 04/12/2024 16:13:06 04/08/20 24 04/08/2024 CMP(C OMPRE HENSI VE METAB OLIC PANEL ) bilirubin, total 0.4 mg/dL 0.2-1. 2 Not Available [facility] (Lab) [address] [place], [address], 04/12/2024 16:13:06 04/08/20 24 04/08/2024 TSH, REFLE X FREE T4 TSH 0.87 uIU/m L 0.30-5 .33 Not Available [facility] (Lab) [address] [place], [address], 04/12/2024 16:13:07 04/08/20 24 04/08/2024 VITAM IN D, 25-OH (TOTA L D2/D3 ) vitamin D, 25-hydroxy, total 32.9 NG/mL 30.0-1 00.0 Sugge stive of Defic iency : <20 ng/mL Sugge stive of Insuf ficie ncy: 20-29 ng/mL Sugge stive of Suffi cienc y: 30-10 0 ng/mL Sugge stive of Toxic ity: >150 ng/mL Not Available [facility] (Lab) [address] [place], [address], 04/12/2024 16:13:07 04/08/20 24 04/08/2024 HEPAT ITIS C (HCV) ,REAL -TIME PCR, QUANT W/GRA PH (SERI AL) hepatitis C quantitation HCV Not Detect ed IU/mL Not Available [facility] (Lab) [address] [facility], [place], [address], 04/12/2024 16:13:08 04/08/20 24 04/08/2024 HEPAT ITIS C (HCV) ,REAL -TIME PCR, QUANT W/GRA PH (SERI AL) test information: Commen t The quant itati ve range of this assay is 15 IU/mL to 100 lee on IU/mL . Perfo rmed at: 01 - [facility] [place] [address] [facility] , [place] [address] Lab Direc tor: Meagan siegel MD, Phone : [phone] Not Available [facility] (Lab) [address] [facility], [place], [address], 04/12/2024 16:13:08 04/08/20 24 04/08/2024 IMAGE GUIDE D PAP, REFLE X HPV IF ASCUS ONLY image guided Pap, reflex HPV ASCUS only SEE RESULT S BELOW CASE REPOR T: Cytol ogy Gynec ologi elena Repor t Case: [id number] Autho joshua g Provi miriam: Samira Clement MD Colle cted: 04/08 1503 Order ing Locat ion: [place] [facility] Recei kash: 04/09 0318 First Scree n: Rosalinda rNeida ica Speci men: Scree rebecca Pap - [...] Thinp rep Imagi ng Syste m. CLINI ELENA INFOR MATIO N: Menst rual Statu s: LMP (if appli cable ): Clini elena Histo ry/Pr eviou s Pap: Type of Neopl sabino (if appli cable ): Signi fican t Clini elena Findi ngs: Other Histo ry: Hormo colin (if appli cable ): PAP EDUCA HEIKE L NOTE: The Pap Test is a scree rebecca test with an inher ent false negat maximino rate. Liqui d-bas ed sampl ing may decre ase, but will not elimi eduard, false negat mxaimino resul ts. A negat maximino resul t [...] ng do not corre late with physi elena and/o r histo rical findi ngs, furth er inves tigat ion is recom lenka d, as clini karis page nted. Not Available [facility] (Lab) [address], [place], [address], 04/13/2024 15:57:26 07/28/20 24 07/28/2024 US, pelvi s No observ ation record ed. [email or web address] [address], [place], [address], 07/28/2024 18:18:48 07/28/20 24 07/28/2024 US, trans vagin al No observ ation record ed. [email or web address] [address], [place], [address], 07/28/2024 18:18:57 07/28/20 24 07/28/2024 US, pelvi s No observ ation record ed. [email or web address] [address] [place] [address], [place], [address], 07/28/2024 20:55:32 Result Notes None recorded. Problems Name Problem SNOMED Code Status Onset Date Resolution Date Notes Provider Name and Address Organization Details Recorded Time Syncope 489696567 Completed may be anxiety related Gail portillo [facility] 12:48:21 Obesity 683905819 Completed Antenata l testing - schd Gail portillo [facility] 12:48:21 Mixed anxiety and depressi ve disorder 583191019 Completed zoloft 50mg, inform pediatri sonido, inc 48 hr supervis ion after delivery Gail portillo [facility] 12:48:21 Viral hepatiti s C 40756355 Completed +Hep C antibody - QUANT H 08/21 MFM u/s & consult, LFT labs given, avoid scalp electrod es, prolonge d rupture of membrane s, intraute rine pressure catheter s, maternal treatmen t w/ PCP PP, notify peds and screen Gial rinaldi, [facility] 1 12:48:20 History of intraven ous drug abuse [id number] Completed Stopped around 4 yrs ago before last pregnanc y - Get U[facility] @ 08[facility] 12:48:21 Genital herpes simplex 03982588 Completed HSV suppress ion tx no later than 36wks - 08/21 valacycl ovir rx [facility] 12:48:21 Large for gestatio n age fetus Completed [facility] 12:48:21 Viral hepatiti s C 09641934 Completed 07/09/2022 +Hep C antibody - QUANT H 372400 - 08/21 MFM u/s & consult, LFT labs given, avoid scalp electrod es, prolonge d rupture of membrane s, intraute rine pressure catheter s, maternal treatmen t w/ PCP PP, notify peds and screen Janey Britt [facility] 2 11:58:21 Genital herpes simplex 23572060 Completed 07/09/2022 HSV suppress ion tx no later than 36wks - 08/21 valacycl ovir rx sent Janey Britt [facility] 2 11:58:21 Mixed anxiety and depressi ve disorder 460742967 Completed 07/09/2022 zoloft 50mg, inform pediatri sonido, inc 48 hr supervis ion after delivery Janey Britt [facility] 2 11:58:21 Obesity 070290733 Completed 07/09/2022 Antenata l testing - schd Janey Britt [facility] 2 11:58:21 Large for gestatio n age fetus Completed 07/09/[address] [facility] 2 11:58:21 Pregnanc y 97893072 Completed 202011/04/2021 Gail Cavazos [facility] 12:48:24 Problem Notes None recorded. Procedures Surgical History Date Name Laterality Status Provider Name and Address Organization Details Recorded Time 04/15/20 24 IUD Removal completed Silvio Clement MD [address], [place], [address], [facility] 04/15/2024 17:29:08 04/08/20 24 Date of Last Pap Smear completed Rebekah Mckeon [facility] 04/15/2024 09:59:49 01/15/20 22 IUD Insertion completed Silvio Clement MD [address], [place], [address], [facility] 01/15/2022 18:15:40 11/23/19 13 extraction of wisdom tooth completed [facility] 06/12/2021 18:35:08 11/23/19 06 Tonsillectomy completed [facility] 06/12/2021 18:35:03 Imaging Results None recorded. Procedure Notes None recorded. Medical Equipment None Reported. Allergies Allergen ID Allergen Name Allergen Category Reaction Reaction Severity Criticality Documentation Date Start Date Code Code System Note Provider Name and Address Organization Details Recorded Time 98129 Substance with sulfonami de structure and antibacte rial mechanism of action (substanc e) medicatio n hives itching Not available Not available Not available 06/07/2021 48056 8003 SNOMED [address] Marium [facility] 10:26:04 Medications Name Sig Start Date [...] height Body mass index (BMI) Body weight Systolic And Diastolic Provider Name and Address Organization Details Last Updated DateTime 01/15/2022 170.18 cm 39.2 kg/m2 308738.09 g 94/68 mm[Hg] Maryann Causey [facility] 01/15/2022 17:55:04 Date Recorded Body weight Systolic And Diastolic Provider Name and Address Organization Details Last Updated DateTime 04/08/2024 624408.97 g 110/69 mm[Hg] Janey Rodríguez [facility] 04/08/2024 15:12:20 Date Recorded Body height Body mass index (BMI) Body weight Systolic And Diastolic Provider Name and Address Organization Details Last Updated DateTime 04/15/2024 170.18 cm 35.2 kg/m2 145854.28 g 107/67 mm[Hg] Rebekah Mckeon [facility] 04/15/2024 09:59:32 Date Recorded Body height Body mass index (BMI) Body weight Systolic And Diastolic Provider Name and Address Organization Details Last Updated DateTime 07/22/2024 170.18 cm 35.2 kg/m2 634847.28 g 99/66 mm[Hg] Nya Bear [facility] 07/22/2024 12:10:05 Social History Question Answer Notes LastModified by Organizat ion Details LastModified Time Tobacco Smoking Status Never Smoker Maryann Causey gentry, [facility] 06/12/2021 18:34:54 If You Are , What Was Your Level Of Alcohol Consumption Prior To ? None [email or web address] Information not available 10/11/2021 Are You Blind Or Do You Have Difficulty Seeing? No [email or web address] Information n ot available 10/11/2021 What Is Your Level Of Caffeine Consumption? Occasional [email or web address] Information not available 10/11/2021 In The 14 Days Before Symptom Onset, Have You Had Close Contact With A Laboratory-confirm ed COVID-19 While That Case Was Ill? No Information n ot available 10/11/2021 In The 14 Days Before Symptom Onset, Have You Had Close Contact With A Person Who Is Under Investigation For COVID-19 While That Person Was Ill? No Information not available 10/11/2021 Have You Been To An Area Known To Be High Risk For COVID-19? No [email or web address] Information not available 10/11/2021 Are You Deaf Or Do You Have Serious Difficulty Hearing? No Information not available 10/11/2021 What Type Of Diet Are You Following? REGULAR Information n ot available 10/11/2021 Have You Ever Been Counseled For Unhealthy Alcohol Use? No Information not available 10/11/2021 Do You Use Your Seat Belt Or Car Seat Routinely? Yes [email or web address] Information not available 10/11/2021 Do You Have Smoke And Carbon Monoxide Detectors In Your Home? Yes [email or web address] Information not available 10/11/2021 Do You Use Sunscreen Routinely? Yes [email or web address] Information not available 10/11/2021 Has Tobacco Cessation Counseling Been Provided? No [email or web address] Information not available 10/11/2021 Do You Have Difficulty Walking Or Climbing Stairs? No [email or web address] Information not available 04/15/2024 Sex: Unknown Functional Status Question Answer Note LastModified by Organizat ion Details LastModified Time Do you use any illicit or recreational drugs? No [email or web address] Information not available 10/11/2021 Do you or have you ever used any other forms of tobacco or nicotine? No [email or web address] Information not available 10/11/2021 What is your level of alcohol consumption? Occasional [email or web address] Information not available 10/11/2021 Are you able to walk independently without assistance or assistive devices? YESWOREST [email or web address] Information not available 10/11/2021 Are you able to care for yourself independently? Yes [email or web address] Information not available 04/15/2024 Do you have difficulty dressing, bathing, grooming, or toileting? No [email or web address] Information not available 04/15/2024 What is your exercise level? Occasional [email or web address] Information not available 10/11/2021 Mental Status Question Answer Note LastModified by Organization D etails LastModified Time Do you feel stressed (tense, restless, nervous, or anxious, or unable to sleep at night)? [id number] [email or web address] Information not available 10/11/2021 Family History Relationship Description Onset Age of this Age Resolved Age Notes LastModified by Organization Details LastModified Time Mother Heart disease [email or web address] Not available 2020 18:33:57 Mother Hypertensive disorder [email or web address] Not available 2020 18:34:08 Mother Hyperlipidem ia [email or web address] Not available 2020 18:34:17 Father Hyperlipidem ia [email or web address] Not available 2020 18:34:25 Medical History Condition Response Allergies (Food, seasonal, environmental ) N Other Y Drug/Latex Allergies/Reactions N Blood Transfusion N Breast Cancer N Dermatologic Disorders N Lung Disease N Defects or Inherited Disease N Breast Problem N Gestational Diabetes N Hematologic disorders N Anesthesia Complications N History of STI Y Deep Vein Thrombosis N Polycystic ovary syndrome N Anxiety Disorder Y Autoimmune disease N Arthritis N Polyps N Infertility N Acid Reflux (GERD) N History of abnormal pap N Cancer N Varicosities N Stroke N Neurologic/Epilepsy N Endometriosis N High Cholesterol N Fibromyalgia N Headaches N Kidney Disease N Heart Problems N Thyroid Problems N GI Problems N Eating Disorder N Anemia N Art (IVF or FET) N Psychiatric Illness N Ovarian Cancer N Diabetes N Pulmonary (TB, Asthma) N Hepatitis/Liver Disease N No Past Medical History N Eczema N Urinary Tract Infection N Abuse/Domestic Violence N Asthma N Trauma/Violence N Depression/ depression Y Heart Disease N Pre-Eclampsia N Hypertension N Osteoporosis N Thrombophilias N Gynecological History Statement/Question Response Abnormal Pap N Flow Heavy Date of Last Mammogram Date of LMP 07/11/2024 Was last menstrual period normal Y STIs/STDs N HPV Vaccine N Duration of Flow (days) 7 12 Current Control Method Abstinence Are cycles usually normal Y Sexually Active? Y Menses Monthly Y Date of Last Pap Smear 04/08/2024 Sexual Problems? Y LMP Approximate Obstetrics History GPAL:G 2 P 2 0 0 2 Type Value Full Term 2 Living 2 Total 2 Past Encounters Encounter ID Performer Location Encounter Start Date Encounter Closed Date Diagnosis/Indication Diagnosis SNOMED-CT Code Diagnosis ICD10 Code Diagnosis IMO Codes Diagnosis Note [id number] Silvio Clement MD [facility] [address],[place] [address] 06/10/2021 10:26:49 06/10/2021 12:27:44 screening for malformation 039061178 Z36.3 [id number] Silvio Clement MD [facility] [address],[place] [address] 06/12/2021 18:20:27 06/16/2021 15:14:16 Routine care 803833209 Z34.92 [id number] Silvio Clement MD [facility] [address],[place] [address] 07/12/2021 15:35:28 07/13/2021 09:44:25 Routine care 851168134 Z34.92 [id number] Silvio Clement MD [facility] [address],[place] [address] 08/09/2021 09:15:37 08/09/2021 10:39:14 Maternal obesity complicating , childbirth and the puerperium, antepartum 0740332660 07 O99.213 Z3A.28 [id number] Silvio Clement MD [facility] [address],[place] [address] 08/09/2021 09:16:26 08/09/2021 12:13:39 Routine care 539221742 Z34.92 [id number] Silvio Clement MD [facility] [address],[place] [address] 08/30/2021 14:45:52 08/30/2021 15:40:37 Routine care 850572277 Z34.92 [id number] Mignon Block MD [facility] [address],[place] [address] 09/24/2021 11:26:59 09/24/2021 13:34:11 Genital herpes simplex 02979775 A60.9 Large for gestation age fetus 349842567 O36.63X1 Mixed anxi ety and depressive disorder 466437474 F41.8 Viral hepatitis C 781588 07 B19.20 Obesity 127802472 E66.9 [id number] Mignon Block MD [facility] [address],[place] [address] 09/24/2021 12:26:17 09/24/2021 12:53:02 Reduced movement 724640041 O36.8199 [id number] MD Delmi Solo [address],[place] [address] 10/04/2021 09:49:36 10/04/2021 12:13:56 Dermal mycosis 72634791 B36.9 [id number] MD Pau [place] [address],[place] [address] 10/04/2021 09:47:55 10/04/2021 11:37:01 Maternal obesity complicating , childbirth and the puerperium, antepartum 2527781707 07 O99.213 Z3A.28 [id number] MD Pau [place] [address],[place] [address] 10/04/2021 09:48:47 10/04/2021 12:48:29 Maternal obesity complicating , childbirth and the puerperium, antepartum 4343191168 07 O99.213 Z3A.36 [id number] Stephanie Cartergle, [facility] [address],[place] [address] 10/11/2021 11:34:26 10/11/2021 13:26:44 Routine care 468946385 Z34.93 [id number] Silvio Clement MD [facility] [address],[place] [address] 10/11/2021 11:32:02 10/11/2021 12:04:03 Maternal obesity complicating , childbirth and the puerperium, antepartum 4940199734 07 O99.213 Z3A.37 [id number] Silvio Clement MD [facility] [address],[place] [address] 10/11/2021 11:35:06 10/11/2021 13:08:50 Maternal obesity complicating , childbirth and the puerperium, antepartum 6263982834 07 O99.213 [id number] Silvio Clement MD [facility] [address],[place] [address] 12/20/2021 12:05:11 12/20/2021 12:32:40 care 501129495 Z39.2 this patient is 26-year-ol d female who presents for follow-up. She is breastfeed ing. She is still having some irregular bleeding. We agreed to Mirena IUD. Will place next weeks. Her baby is well. Her mood is good. She return next week. She has had intercours e. It was about a week and half ago [id number] Silvio Clement MD [facility] [address],[place] [address] 01/15/2022 17:39:51 01/16/2022 14:14:26 Contraception care management 649282458 Z30.9 [id number] Silvio Clement MD [facility] [address],[place] [address] 04/08/2024 14:57:56 04/08/2024 15:37:58 Gynecologic examination 58413965 Z01.419 Annual gynecologi elena exam performed. Patient will come back in a year unless there are new symptoms. Suggest Calcium with Vitamin D if not eating in diet. Patient advised to get annual flu shot. Recommend yearly physicals and preform monthly breast exams. Genetic testing is available for patients with family history of cancer. Engage in safe sexual practices, use condoms. Encouraged to have daily exercise. Avoid tobacco and illicit drugs, moderation of alcohol. If BMI greater than 25 dietary consult advised. If you have any questions please call or email. Pap smear- today laboratory evaluation -TOday [id number] Silvio Clement MD [facility] [address],[place] [address] 04/15/2024 09:27:42 04/16/2024 09:52:50 Contraception care management 652243974 Z30.9 IUD removed without complicati ons. She tolerated well. She will follow-up as needed. [id number] Silvio Clement MD [facility] [address],[place] [address] 07/22/2024 11:02:38 07/22/2024 12:49:29 Pain in pelvis 72186822 R10.2 this patient is a 28-year-ol d female who presents for pelvic pain today. She has longstandi ng right-side d pelvic pain. It is sharp. It is intermitte nt. It lasts days at a time. Nothing is palliative and nothing is provocativ e. It has become worse over time. The episodes have become longer. She denies any abnormal vaginal bleeding. She had no zone no abnormal vaginal discharge. She denies any pain with intercours e. She denies any nausea, vomiting, fever, chills. She denies any chest pain or shortness of breath. She denies any abnormal vaginal discharge. [id number] Silvio Clement MD [facility] [address] [address] 07/28/2024 16:54:35 07/28/2024 17:47:57 Pain in pelvis 02953824 R10.2 this patient is a 28-year-ol d female who presents for pelvic pain today. She has longstandi ng right-side d pelvic pain. It is sharp. It is intermitte nt. It lasts days at a time. Nothing is palliative and nothing is provocativ e. It has become worse over time. The episodes have become longer. She denies any abnormal vaginal bleeding. She had no zone no abnormal vaginal discharge. She denies any pain with intercours e. She denies any nausea, vomiting, fever, chills. She denies any chest pain or shortness of breath. She denies any abnormal vaginal discharge. Health Concerns Section Related Observation LastModified by Organization Detai ls LastModified Time None Recorded Concern Status LastModified by Organization Details LastModified Time None Recorded Advance Directives Directive None Recorded Payers Insurance Date Sequence Insurance Name Policy Number Policy Sams Covered Member ID Sams Member ID Guarantor Name 10/10/2024 2 [place] [employer] [employer] Mary Jo Neves [id number] Mary Jo Neves 07/22/2024 1 FOR[facility]LY [facility] (MEDICAID HMO) Mary Jo Neves [id number] Mary Jo Neves 10/10/2024 1 [facility] [id number] Mary Jo Neves [id number] Mary Jo Neves Notes Date Note Type Note Provider Name and Address Organization Details Recorded Time 01/15/20 22 text/htm l Patient presents for IUD insertion. Silvio Clement MD [address], [place], [address], [facility] 01/15/2022 18:16:22 04/08/20 24 text/htm l Annual GYNReported by PatientHistoryFor history, patient reportsno gynecologic complaints.Genitourinary symptomsFor menstrual cycle, patient reportsnormal menses. For urinary symptoms, patient reportsno hematuriaandno incontinence. For vulva, patient reportsno genital lesion. For vagina, patient reportsnormal vaginal discharge.Breast symptomsFor breast, patient reportsno breast painandno breast lump.ContraceptionFor current contraception, patient reportsintrauterine device (iud).Endocrine symptomsFor sexual complaints, patient reportsno sexual complaintsandno pain during intercourse. For menopausal symptoms, patient reportsno menopausal symptomsandnormal vaginal lubrication.Psychological symptomsFor psychological symptoms, patient reportsno depressionandno anxiety.Preventative measuresFor preventive measures, patient reportsencourage self breast examinationandencourage regular exercise. Silvio Clement MD [address], [place], [address], [facility] 04/08/2024 15:35:09 04/15/20 24 text/htm [email or web address] 28-year-old female presents for IUD removal. She understands the procedure. Has been explained to her in detail. She understands the risks, benefits, and alternatives. She is completed the informed consent process and is ready to proceed. Silvio Clement MD [address], [place], [address], [facility] 04/15/2024 17:29:51 07/22/20 24 text/htm [email or web address] Urbano-Pelvic PainReported by Patient this patient is a 28-year-old female who presents for pelvic pain today. She has longstanding right-sided pelvic pain. It is sharp. It is intermittent. It lasts days at a time. Nothing is palliative and nothing is provocative. It has become worse over time. The episodes have become longer. She denies any abnormal vaginal bleeding. She had no zone no abnormal vaginal discharge. She denies any pain with intercourse. She denies any nausea, vomiting, fever, chills. She denies any chest pain or shortness of breath. She denies any abnormal vaginal discharge. Silvio Clement MD [address], [place], [address], [facility] 07/22/2024 12:42:18 OBGyn Episode Ob Episode Information Episode Created Date Number of Fetuses Patient Bloodtype Patient rh Status Prepregnancy Weight lbs Domestic Partner Domestic Partner Phone Father Name Hebrew Cantor Status 06/12/20 21 1 B Positive CLOSED Fetus Data First Name Last Name Admitted to NICU Weight (g) Sex Living Outcome Pediatric Complications Fetus ID Race Codes Race Delivery Type 3572.03 7 F true Full Term 11508 Vaginal Delivery Problems Problem Notes records reviewed - had Hep C drawn HEP C + - MFM rpt u/s 10/21 at 1:45 Problem Name Start Date End Date Resolution Snomed Code Not e Syncope SELFRESOLVED 839128958 may be anxiety related Obesity 914286601 testing - schd Viral hepatitis C 52822046 +H ep C antibody - QUANT H 825890 - 08/21 MFM u/s & consult, LFT labs given, avoid scalp electrodes, prolonged rupture of membranes, intrauterine pressure catheters, maternal treatment w/ PCP PP, notify peds and screen Mixed anxiety and depressive disorder MEDICATION [id number] zoloft 50mg, inform tin pourer, inc 48 hr supervision after delivery History of intravenous drug abuse [id number] Stopped ar ound 4 yrs ago before last - Get UDS @ 08/23 visit Genital herpes simplex 03939915 HSV suppression tx no later than 36wks - 08/21 valacyclovir rx sent Large for gestation age fetus 298890701 Mannie Calculation Initial Mannie Date Initial Exam Date Initial Exam Provider Initial Ultrasound Date Last Menstrual Period Date Ultra Sound Weeks Gestation 10/27/2021 06/12/2021 03/29/2021 01/20/2021 10 Eighteen To Twenty Week Mannie Update Ultra Sound Date Fundal Height At Umbil Quickening Date Ultra Sound Latest Weeks Gestation Final Mannie Confirmed By Final Mannie Confirmed Date Final Mannie Date Ultra Sound Latest Days Gestation 0 [email or web address] 06/12/2021 10/27/20 21 0 Pre- Flowsheet Flowsheet Date 06/12/2021 Sorenson Score Blood Edema Fundus Height Fundus Units Glucose Ketones Leukocytes Nitrite Labor Signs Protein Cervic Dilation Cervic Effacement Cervic Station 20 Type Weight in lbs Pre/Post Dialysis Refused Weight 246.317897120278 BP Diastolic BP Location Tested BP Systolic BP Type 68 R arm 111 sitting Fetus Heart Rate Present A 140 Fetus Movement Comments this patient is a 25-year-ol d 2 para 1001 at 20 weeks gestation who presents for initial visit. She has a history of a term vaginal . She has an unremarkable medical and surgical history. She has had episodes of syncope throughout her life. She had a recent episode of syncope with muscle rigidity suggestive of seizure. She was never postictal. We will obtain a Neurology consult. We spoke our organization and its obstetric services. We discussed care in detail. She will begin routine care. Flowsheet Date 07/12/2021 Sorenson Score Blood Edema Fundus Height Fundus Units Glucose Ketones Leukocytes Nitrite Labor Signs Protein Cervic Dilation Cervic Effacement Cervic Station 24 Type Weight in lbs Pre/Post Dialysis Refused Weight 251.95353376495 BP Diastolic BP Location Tested BP Systolic BP Type 69 R arm 114 sitting Fetus Heart Rate Present A 145 Fetus Movement Comments We discussed neurology consu lt agreed to hold off on that. She has got these episodes of syncope. She has been treated for anxiety and she has had no episodes of cysts near syncope or syncope. She now believes that these are close the related to her anxiety. Growth ultrasound at 20 weeks for BC. Flowsheet Date 08/09/2021 Sorenson Score Blood Edema Fundus Height Fundus Units Glucose Ketones Leukocytes Nitrite Labor Signs Protein Cervic Dilation Cervic Effacement Cervic Station Type Weight in lbs Pre/Post Dialysis Refused BP Diastolic BP Location Tested BP Systolic BP Type Fetus Heart Rate Present Fetus Movement Comments Flowsheet Date 08/09/2021 Sorenson Score Blood Edema Fundus Height Fundus Units Glucose Ketones Leukocytes Nitrite Labor Signs Protein Cervic Dilation Cervic Effacement Cervic Station 28 trace Type Weight in lbs Pre/Post Dialysis Refused Weight 257.126957538846 BP Diastolic BP Location Tested BP Systolic BP Type 74 R arm 118 sitting Fetus Heart Rate Present A 145 Fetus Movement A Yes Comments discussed NSTs at 37 weeks s econdary to obesity. Diabetes screening today. She has not heard from MFM yet. Anxiety is stable, syncope resolved. Flowsheet Date 08/30/2021 Sorenson Score Blood Edema Fundus Height Fundus Units Glucose Ketones Leukocytes Nitrite Labor Signs Protein Cervic Dilation Cervic Effacement Cervic Station 31 Type Weight in lbs Pre/Post Dialysis Refused Weight 255.674554329068 BP Diastolic BP Location Tested BP Systolic BP Type 65 R arm 122 sitting Fetus Heart Rate Present A 158 Fetus Movement Comments No complaints, MFM consult f or hep C completed -the patient felt reassured, good movement Flowsheet Date 09/24/2021 Sorenson Score Blood Edema Fundus Height Fundus Units Glucose Ketones Leukocytes Nitrite Labor Signs Protein Cervic Dilation Cervic Effacement Cervic Station neg trace 36 trace Type Weight in lbs Pre/Post Dialysis Refused Weight 263.297853551420 BP Diastolic BP Location Tested BP Systolic BP Type 82 125 Fetus Heart Rate Present A 140 Fetus Movement A Decreased Comments Some decreased FM today. On NST reactive and now feeling FM and reassured. Taking valtrex daily. Some back pain, discussed comfort measures. On MFM US 97%, AC99%. Discussed risks of shoulder dystocia, CS, poor outcomes for baby possible. She delivered her other at 38w (8#). Hep C pos- no FSE. Flowsheet Date 09/24/2021 Sorenson Score Blood Edema Fundus Height Fundus Units Glucose Ketones Leukocytes Nitrite Labor Signs Protein Cervic Dilation Cervic Effacement Cervic Station Type Weight in lbs Pre/Post Dialysis Refused BP Diastolic BP Location Tested BP Systolic BP Type Fetus Heart Rate Present Fetus Movement Comments Flowsheet Date 10/04/2021 Sorenson Score Blood Edema Fundus Height Fundus Units Glucose Ketones Leukocytes Nitrite Labor Signs Protein Cervic Dilation Cervic Effacement Cervic Station Type Weight in lbs Pre/Post Dialysis Refused BP Diastolic BP Location Tested BP Systolic BP Type Fetus Heart Rate Present Fetus Movement Comments Flowsheet Date 10/04/2021 Sorenson Score Blood Edema Fundus Height Fundus Units Glucose Ketones Leukocytes Nitrite Labor Signs Protein Cervic Dilation Cervic Effacement Cervic Station Type Weight in lbs Pre/Post Dialysis Refused BP Diastolic BP Location Tested BP Systolic BP Type Fetus Heart Rate Present Fetus Movement Comments Flowsheet Date 10/04/2021 Sorenson Score Blood Edema Fundus Height Fundus Units Glucose Ketones Leukocytes Nitrite Labor Signs Protein Cervic Dilation Cervic Effacement Cervic Station 36 trace Type Weight in lbs Pre/Post Dialysis Refused Weight 265.597933030244 BP Diastolic BP Location Tested BP Systolic BP Type 88 131 Fetus Heart Rate Present A 134 Fetus Movement A Yes Comments Normal testing tod ay, BPP and NST. Cervix could not be reached, vertex. Patient appears to have fungal infection in the bilateral groin and clefts between her thigh and vulva. To treat with combination antifungal and steroid cream. Flowsheet Date 10/11/2021 Sorenson Score Blood Edema Fundus Height Fundus Units Glucose Ketones Leukocytes Nitrite Labor Signs Protein Cervic Dilation Cervic Effacement Cervic Station Type Weight in lbs Pre/Post Dialysis Refused BP Diastolic BP Location Tested BP Systolic BP Type Fetus Heart Rate Present Fetus Movement Comments Flowsheet Date 10/11/2021 Sorenson Score Blood Edema Fundus Height Fundus Units Glucose Ketones Leukocytes Nitrite Labor Signs Protein Cervic Dilation Cervic Effacement Cervic Station Type Weight in lbs Pre/Post Dialysis Refused BP Diastolic BP Location Tested BP Systolic BP Type Fetus Heart Rate Present Fetus Movement Comments Flowsheet Date 10/11/2021 Sorenson Score Blood Edema Fundus Height Fundus Units Glucose Ketones Leukocytes Nitrite Labor Signs Protein Cervic Dilation Cervic Effacement Cervic Station neg trace trace 2cm 80% -1 Type Weight in lbs Pre/Post Dialysis Refused Weight 270.10981747235 BP Diastolic BP Location Tested BP Systolic BP Type 82 118 Fetus Heart Rate Present Fetus Movement A Yes Comments patient is having some pain, contractions, discharge, swelling, nausea and is not sleeping well. wants [address] Clement, scheduled bpp 06/30 Menstrual History Last Menstrual Date Menses Monthly On Bcp Conception Prior Menses Frequency Hcg Plus Date Menarche Onset Age 0201/20/2021 Genetic Screening And Infection History Question Response Note Mental Retardation/Autism false Patient's Age Will Be 35 Years Or Older At Estim ated Date of Delivery false Thalassemia (Turkish, Filipino, Mediterranean, Or Background): MCV < 80 false Neural Tube Defect (Meningomyelocele, Spina Bifi da, Or Anencephaly) false Congenital Heart Defect false Down Syndrome false Hollis-Sachs (eg, Congregational, Cajun, Polish-Crisp) f alse Ana Disease false Sickle Cell Disease Or Trait () false Hemophilia Or Other Blood Disorders false Muscular Dystrophy false Cystic Fibrosis false Woody's Chorea false Intellectual Disability/Autism false If Yes, Was Person Tested For Fragile X? false Other Inherited Genetic Or Chromosomal Disorder false Maternal Metabolic Disorder (eg, Type 1 Diabetes , PKU) false Patient Or Baby's Father Had A Child With Defects Not Listed Above false Recurrent Loss, Or A Stillbirth false Medications (including Suppl ements, Vitamins, Herbs, OTC Drugs), Illicit/Recreational Drugs, Alcohol false If Yes, Agent(s) And Strength/Dosage false Any Other Genetic History false Live With Someone With TB Or Exposed To TB false Patient Or Partner Has History Of Genital Herpes false Rash Or Viral Illness Since Last Menstrual Perio d false History Of STD, Gonorrhea, Chlamydia, HPV, Syphi lis false Other Infection History false History of HIV false History of Hepatitis false Prior GBS-infected child false Hemoglobinopathy Or Carrier false Other Structural Defect false Recent Travel History Outside of Country false Delivery Information Delivery Date Delivery Type Labor Anesthesia Weeks Gestation Incision Type Labor Labor Length Hrs Delivered By Post Complications Tubal Sterilization Discharge Date Comments 1 Induce d Regional-Ep idural 38 Silvio Mo MD ROM, Gbs+, Maternal Obesity, HSV, HEP C+ Discharge Information Feeding Method Contraceptive Method Maternal HG B and HCT Levels Breast Ob Episode Information Episode Created Date Number of Fetuses Patient Bloodtype Patient rh Status Prepregnancy Weight lbs Domestic Partner Domestic Partner Phone Father Name Hebrew Cantor Status 06/07/20 21 1 CLOSED Fetus Data First Name Last Name Admitted to NICU Weight (g) Sex Living Outcome Pediatric Complications Fetus ID Race Codes Race Delivery Type 3628.73 6 M Full Term 77152 Vaginal Delivery Mannie Calculation Initial Mannie Date Initial Exam Date Initial Exam Provider Initial Ultrasound Date Last Menstrual Period Date Ultra Sound Weeks Gestation 0 Eighteen To Twenty Week Mannie Update Ultra Sound Date Fundal Height At Umbil Quickening Date Ultra Sound Latest Weeks Gestation Final Mannie Confirmed By Final Mannie Confirmed Date Final Mannie Date Ultra Sound Latest Days Gestation 0 0 Menstrual History Last Menstrual Date Menses Monthly On Bcp Conception Prior Menses Frequency Hcg Plus Date Menarche Onset Age Delivery Information Delivery Date Delivery Type Labor Anesthesia Weeks Gestation Incision Type Labor Labor Length Hrs Delivered By Post Complications Tubal Sterilization Discharge Date Comments 7 38 Abruptio n Discharge Information Feeding Method Contraceptive Method Maternal HG B and HCT Levels
--- OUTSIDE RECORDS SUMMARY | 2025-11-12 12:51 | XMS_ITS | Clinical Summary ---
Author Organization [employer] [facility] lin Address [address] [place] [address] Care Team Providers Care Metal Cnc Operator Name Role Phone No, Pcp PLASTICS HEAT WELDER Primary Care Provider Unavailabl e Social History Tobacco Use Types Packs/Day Years Used Date Smoking Tobacco: Never Assessed Comments Unknown Sex and Gender Information Value Date Recorded Sex Assigned at Not on file Legal Sex Female 12:15 PM EST Gender Identity Not on file Sexual Orientation Not on file Plan of Treatment Not on file Medical Devices Not on file [place] [place] [id number] Care Teams Metal Cnc Operator Relationship Specialty Start Date End Date No, Pcp, PLASTICS HEAT WELDER N/A Do not use PCP - General Family Medicine 09/27/20
[2025-11-12 12:54] VITALS: BP 128/76; PULSE 80; RESP 16; TEMP 36.5; O2SAT 100
--- NOTE | 2025-11-12 13:23 | ED.SKABFB ---
HPI - Skin/Abscess/Foreign Bdy General Chief complaint: Skin/Abscess/Foreign Body Stated complaint: Rash Time Seen by Provider: 11/12/25 13:24 Source: patient, RN notes reviewed and old records reviewed Mode of arrival: ambulatory Limitations: no limitations History of Present Illness HPI narrative: 30 year female who presents to [facility] care with complaints of increased rash to body that was initially on her right arm Patient reports that she was seen on the 12th in clinic and did use the triamcinolone ointment but did not use Benadryl and rash has been very itchy which has spread to back of legs and also to left arm, chest and back, and abdomen since initially seen. Sky reports that she has been working with [employer] material. MD complaint: rash Onset (ago): week(s) (initially 10 days ago now has spread) Severity: moderate Treatments prior to arrival: other (triamcinolone) Related Data Home Medications ?Medication ?Instructions ?Recorded ?Confirmed ?Last Taken ?Type sertraline 100 mg tablet mg 04/11/25 Unknown History Allergies Allergy/AdvReac Type Severity Reaction Status Date / Time vancomycin Allergy Intermediate Redness of Verified 11/12/25 13:00 Skin Review of Systems Review of Systems: CONSTITUTIONAL: Denies fever, chills, or sweats. CARDIOVASCULAR: Denies chest pain, palpitations, or edema. RESPIRATORY: Denies cough or dyspnea. SKIN: Reports spreading rash to arms back of legs, back, chest and abdomen which is red raised and itchy initially treated for rash on right arm on 11/03/2025. MUSCULOSKELETAL: Denies joint pain or myalgia. NEUROLOGIC: Denies headache, numbness, or weakness. All systems reviewed & are unremarkable except as noted in HPI and below PMFSH Past Medical History Medical History (Updated 11/14/25 @ 07:44 by Sruthi Dumont APRN) Fracture of left hand Fracture of left forearm Seizures years ago none since Hx of migraines Placenta previa with 1st Hepatitis C Surgical History Surgical History (Updated 11/14/25 @ 07:38 by Sruthi Dumont APRN) Hazard teeth extracted History of tonsillectomy and adenoidectomy Family History Family History Mother Cancer Diabetes mellitus Grandparent Cancer Diabetes mellitus Father Fatty liver Heart disease Social History Social History Smoking status: Former smoker Second hand tobacco smoke exposure: No Substance use: current Substance use type: marijuana Gender identity (if verbalized by the patient): Female Spiritual care concerns: No Comments At time of signature, agree with nursing past medical, surgical, social and family history. There is no relevant family history pertinent to the presenting complaint Exam Narrative: GENERAL: Well-appearing, well-nourished, and in no acute distress. HEAD: Normocephalic, atraumatic. EYES: PERRLA, conjunctivae clear, and EOMI. ENT: Mucous membranes moist. Oropharynx without edema, erythema or lesions, tonsils absent NECK: Supple. No lymphadenopathy CHEST: Clear to auscultation. No respiratory distress.no cough or congestion SAO2 100% on room air HEART: Regular rate and rhythm. SKIN: Warm, dry.? Patches of red raised circular rash to arms,legs chest back and abdomen which was initially on just right forearm. rash is itchy NEURO:? Alert and oriented x3. PSYCH: Normal mood and affect Course Course Level of Care: Express Care Visit Vital Signs Vital signs: Vital Signs Temperature 36.5 C 11/12/25 12:54 Pulse Rate 80 11/12/25 12:54 Respiratory Rate 16 11/12/25 12:54 Blood Pressure 128/76 11/12/25 12:54 Pulse Oximetry 100 11/12/25 12:54 Oxygen Delivery Room Air 11/12/25 12:54 Temperature 36.5 C 11/12/25 12:54 Pulse Rate 80 11/12/25 12:54 Respiratory Rate 16 11/12/25 12:54 Blood Pressure 128/76 11/12/25 12:54 Pulse Oximetry 100 11/12/25 12:54 Oxygen Delivery Room Air 11/12/25 12:54 reviewed MDM MDM Narrative Medical decision making narrative: Patient with diagnosis of contact dermatitis which has spread from initial visit on 11/03/2025 will treat with RX prednisone, Pepcid.Zyrtec and use of steroid cream, encouraged to use Benadryl orally for itching with safety measures with this medication. Patient agrees to plan of care. anticipatory guidance reasons to seek care in ED reviewed with understanding voiced. Differential Diagnosis Differential Diagnosis: Differential diagnostic considerations for skin/abscess/foreign body issues include abscess of skin or subcutaneous tissue, viral exanthem, dermatophytosis, urticaria, herpes zoster, allergic reaction to drug, cellulitis, eczema, insect bites, impetigo, contact dermatitis, vasculitis. Critical Care Time Critical Care Time Critical Care Time: No Discharge Plan Discharge Clinical Impression: Contact dermatitis Qualifiers: Contact dermatitis type: unspecified Contact dermatitis trigger: adhesive Qualified Code(s): L23.1 - Allergic contact dermatitis due to adhesives Patient Disposition: Home Condition: Stable Instructions: Antibiotic Form, Contact Dermatitis (ED) Additional Instructions: question rash areas with liquid Dial soap twice daily and rinse than apply triamcinolone ointment watch for increasing infection--redness, swelling, drainage Tylenol or ibuprofen for any fever pain daily Zyrtec for the next 10 days daily Pepcid for the next 10 days prednisone taper take as prescribed with food follow up with PCP in 7-10 days for a wound check recheck if develop fever, chills, increasing symptom Go to the ER if your symptoms become worse of if ANY new symptoms develop If your symptoms persist, change or worsen significantly before you can contact your personal physician then please, without delay, go to the emergency department for further evaluation. Follow-up with PCP in 7-10 days or sooner if needed Follow up with PCP soon in regards to your blood pressure which is elevated above threshold for referral. Blood pressure above 120/80 may indicate pre-hypertension. 128/76 mild elevation take oral Benadryl for itching every [address] while taking Patient Language: Uz[place] Prescriptions: New prednisone 10 mg tablet 10 mg PO DIRECTED Qty: 21 0RF Rx Instructions: see taper instructions 6 tabs day 1, 5 tabs day 2, 4 tabs day 3, 3 tabs day 4, 2 tabs day 5, 1 tab day 6 take as prescribed with food famotidine [Pepcid] 20 mg tablet 20 mg PO DAILY Qty: 10 0RF triamcinolone acetonide 0.1 % ointment 1 applic topical BID Qty: 80 0RF Rx Instructions: apply to arms and legs and upper chest never apply this to the face No Action sertraline 100 mg tablet triamcinolone acetonide 0.5 % cream 1 applic topical BID 7 Days Qty: 15 0RF Follow-up/Referrals: PHYSICIAN NOT ON STAFF,NONSTAFF [Primary Care Provider] Time of Disposition: 13:34 Quality Abelardo Coma Scale Eyes: Open Verbal: Oriented and Alert Motor: Follows Commands [place] Coma Total Score: 15
== END 2025-11-12 13:40 | disposition home or self-care (01) ==
PROVIDERS: Emergency Provider Registered Nurse
DX: L23.1 Allergic contact dermatitis due to adhesives (principal); Z87.891 Personal history of nicotine dependence; F12.90 Cannabis use, unspecified, uncomplicated
CPT/HCPCS: 99213; G0463